=== PATIENT | female | born 1970 | race Caucasian/White ===

== ENCOUNTER 2017-09-20 01:21 | Emergency (ER) | payer OTHER ==
[~2017-09-20] VITALS: Ht 160 cm; Wt 58.5 kg
[~2017-09-20 01:21] MED LIST: AUGMENTIN 875-1 EACH PO; CEPHALEXIN500 MG PO; CILOXAN5 ML OD; METFORMIN HCL1000 MG PO; ZESTRIL10 MG PO
== END 2017-09-20 03:22 | disposition home or self-care (01) ==
LOC: ED 01:21
DX: M54.5 Low back pain (principal); I10 Essential (primary) hypertension; E11.9 Type 2 diabetes mellitus without complications; Z87.891 Personal history of nicotine dependence; Z98.51 Tubal ligation status; Z79.899 Other long term (current) drug therapy
CPT/HCPCS: 80053; 81001; 83690; 84703; 85025; 99283

== ENCOUNTER 2018-02-14 20:07 | Emergency (ER) | payer SELFPAY ==
[~2018-02-14] VITALS: Ht 160 cm; Wt 60.8 kg
[2018-02-14] MEDS ORDERED: TESSALON PERLE100 MG PO (20:40)
== END 2018-02-14 20:51 | disposition home or self-care (01) ==
LOC: ED 20:07
DX: J20.9 Acute bronchitis, unspecified (principal); I10 Essential (primary) hypertension; E11.9 Type 2 diabetes mellitus without complications; Z87.891 Personal history of nicotine dependence
CPT/HCPCS: 99283

== ENCOUNTER 2018-04-03 00:36 | Emergency (ER) | payer OTHER ==
[~2018-04-03] VITALS: Ht 160 cm; Wt 60.8 kg
[~2018-04-03 00:36] MED LIST changes: +TESSALON PERLE100 MG PO
== END 2018-04-03 01:57 | disposition home or self-care (01) ==
LOC: ED 00:36
DX: S93.401A Sprain of unspecified ligament of right ankle, initial encounter (principal); I10 Essential (primary) hypertension; E11.9 Type 2 diabetes mellitus without complications; Z87.891 Personal history of nicotine dependence; W22.8XXA Striking against or struck by other objects, initial encounter; Y92.89 Other specified places as the place of occurrence of the external cause; Y99.0 Civilian activity done for income or pay
CPT/HCPCS: 73610; 73630; 99283

== ENCOUNTER 2018-08-31 12:18 | Emergency (ER) | payer OTHER ==
[~2018-08-31] VITALS: Ht 160 cm; Wt 60.8 kg
--- OUTSIDE RECORDS SUMMARY | 2018-08-31 12:22 | XMS ---
PreManage Notification: KENY MEEK Security Recruitment And Outreach Assistant Events No recent Security Events currently on file CRITERIA MET - Group Notification - [facility] - 2 Visits in 30 Days CARE PROVIDERS VAMSI ACEVEDO Primary Care 10/13/2015-Current PHONE: Unknown VAMSI ACEVEDO Primary Care 10/13/2015-Current PHONE: [phone] Surya has no Care Guidelines for this patient. Care History Social 02/18/2018 [facility] PATIENT GIVEN CONTACT INFORMATION TO INTERN ARCHITECT TO APPLY FOR STATE COVERAGE. E.D. VISIT COUNT (12 MO[address] 1 [facility] 5 [facility]. TOTAL 6 NOTE: Visits indicate total known visits. ED/UCC VISIT TRACKING (12 MO.) 08/31/2018 12:19 NOLBERTO Aggarwal TYPE: Emergency COMPLAINT: - FLANK PAIN 08/19/2018 10:02 [facility] Nelly SHABAZZ TYPE: Emergency DIAGNOSES: - Encounter for general adult medical examination without abnormal findings - Medical Problem (Minor) 04/03/2018 00:36 NOLBERTO Alegria [place] TYPE: Emergency COMPLAINT: - R ANKLE INJURY DIAGNOSES: - Sprain of unspecified ligament of right ankle, initial encounter - Other specified places as the place of occurrence of the external cause - Striking against or struck by other objects, initial encounter - Type 2 diabetes mellitus without complications - Unspecified injury of right ankle, initial encounter - Civilian activity done for income or pay - Essential (primary) hypertension - Personal history of nicotine dependence 02/20/2018 14:19 NOLBERTO Alegria [place] TYPE: Emergency COMPLAINT: - ABD PAIN DIAGNOSES: - Essential (primary) hypertension - Type 2 diabetes mellitus without complications - Other stimulant dependence, uncomplicated - Lower abdominal pain, unspecified 02/14/2018 20:07 NOLBERTO Alegria [place] TYPE: Emergency COMPLAINT: - COUGH, LUMP ON L SIDE OF NECK DIAGNOSES: - Cough - Type 2 diabetes mellitus without complications - Acute bronchitis, unspecified - Personal history of nicotine dependence - Essential (primary) hypertension 09/20/2017 01:22 NOLBERTO Alegria [place] TYPE: Emergency COMPLAINT: - LOWER BACK PAIN/NO INJURY DIAGNOSES: - Other alf (current) drug therapy - Personal history of nicotine dependence - Type 2 diabetes mellitus without complications - Low back pain - Tubal ligation status - Essential (primary) hypertension INPATIENT VISIT TRACKING (12 MO.) No inpatient visits to display in this time frame [email or web address]
[2018-08-31] MEDS ORDERED: METFORMIN HCL1000 M1 PO (13:15)
[2018-08-31] MEDS ORDERED: LISINOPRIL-HCT1 EAC2 PO (13:15)
== END 2018-08-31 17:44 | disposition home or self-care (01) ==
LOC: ED 12:18
DX: R10.31 Right lower quadrant pain (principal); I10 Essential (primary) hypertension; E11.9 Type 2 diabetes mellitus without complications; Z87.891 Personal history of nicotine dependence; Z79.899 Other long term (current) drug therapy; Z79.84 Long term (current) use of oral hypoglycemic drugs
CPT/HCPCS: 74177; 80053; 81001; 83605; 83690; 84703; 85025; 87040; 96360; 96361; 99284-25; J7030; Q9967

== ENCOUNTER 2018-09-02 06:33 | Emergency (ER) | payer OTHER ==
[~2018-09-02] VITALS: Ht 160 cm; Wt 70.8 kg
[~2018-09-02 06:33] MED LIST changes: +LISINOPRIL-HCT1 EAC2 PO; +METFORMIN HCL1000 M1 PO
--- OUTSIDE RECORDS SUMMARY | 2018-09-02 06:38 | XMS ---
PreManage Notification: KENY MEEK Security Senior Environmental Consultant Events No recent Security Events currently on file CRITERIA MET - Group Notification - [facility] - 2 Visits in 30 Days CARE PROVIDERS DL ARNETT Physician Community Organization Aide 09/01/2018-Current PHONE: [phone] VAMSI ACEVEDO Primary Care 10/13/2015-Current PHONE: Unknown VAMSI ACEVEDO Primary Care 10/13/2015-Current PHONE: [phone] Surya has no Care Guidelines for this patient. Care History Medical/Surgical 09/01/2018 [facility] - PATIENT HAS NOT BEEN SEEN BY PCP ARTHUR ARNETT. - PATIENT DOES NOT HAVE A PCP IN THE AREA. - PLEASE REFER PATIENT TO [facility] IF PATIENT IS SEEN FOR NON EMERGENT MEDICAL NEEDS. Social 02/18/2018 [facility] PATIENT GIVEN CONTACT INFORMATION TO DENTAL LABORATORY MANAGER TO APPLY FOR STATE COVERAGE. Martin VISIT COUNT (12 MO.) 1 [facility] TOTAL 7 NOTE: Visits indicate total known visits. ED/UCC VISIT TRACKING (12 MO.) 09/02/2018 06[facility] [place] [facility] COMPLAINT: - R PINKY TOE PAIN/INJURY 08/31/2018 12:19 NOLBERTO Alegria [place] TYPE: Emergency COMPLAINT: - FLANK PAIN 08/19/2018 10:02 [facility] Hayley SHABAZZ TYPE: Emergency DIAGNOSES: - Encounter for [...] history of nicotine dependence 02/20/2018 14:19 NOLBERTO Carballo Tisha [place] TYPE: Emergency COMPLAINT: - ABD PAIN DIAGNOSES: - Essential (primary) hypertension - Type 2 diabetes mellitus without complications - Other stimulant dependence, uncomplicated - Lower abdominal pain, unspecified 02/14/2018 20:[address] [facility] [place] TYPE: Emergency COMPLAINT: - COUGH, LUMP ON L SIDE OF NECK DIAGNOSES: - Cough - Type 2 diabetes mellitus without complications - Acute bronchitis, unspecified - Personal history of nicotine dependence - Essential (primary) hypertension 09/20/2017 01:[address] 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
== END 2018-09-02 06:45 | disposition home or self-care (01) ==
LOC: ED 06:33
DX: S99.921A Unspecified injury of right foot, initial encounter (principal); W22.8XXA Striking against or struck by other objects, initial encounter; I10 Essential (primary) hypertension; E11.9 Type 2 diabetes mellitus without complications; Z87.891 Personal history of nicotine dependence; Z79.84 Long term (current) use of oral hypoglycemic drugs; Z79.899 Other long term (current) drug therapy
CPT/HCPCS: 99283

== ENCOUNTER 2018-09-07 05:36 | Emergency (ER) | payer OTHER ==
[~2018-09-07] VITALS: Ht 160 cm; Wt 69.8 kg
--- OUTSIDE RECORDS SUMMARY | 2018-09-07 05:38 | XMS ---
PreManage Notification: KENY MEEK Security Architectural Design Lecturer Events No recent Security Events currently on file CRITERIA MET - Group Notification - [facility] - 2 Visits in 30 Days CARE PROVIDERS DL ARNETT Physician Box Puller 09/01/2018-Current PHONE: [phone] VAMSI ACEVEDO Primary Care 10/13/2015-Current PHONE: Unknown VAMSI ACEVEDO Primary Care 10/13/2015-Current PHONE: [phone] Surya has no Care Guidelines for this patient. Care History Social 02/18/2018 [facility] PATIENT GIVEN CONTACT INFORMATION TO SUPERVISOR DOPING TO APPLY FOR STATE COVERAGE. Medical/Surgical 09/01/2018 [facility] - INVALID CONTACT INFO- CONTACT NUMBER IS NO LONGER IN SERVICE - IF PATIENT IS SEEN IN THE ED DURING BUSINESS HOURS PLEASE CONTACT CHRISTIANA EXT [phone] TO APPLY FOR MEDICAID BENEFITS. PATIENT NEEDS A PCP AND NEEDS TO APPLY FOR INSURANCE. - PATIENT HAS NOT BEEN SEEN BY PCP ARTHUR ARNETT. - PATIENT DOES NOT HAVE A PCP IN THE AREA. - PLEASE REFER PATIENT TO [facility] W[facility] IF PATIENT IS SEEN FOR NON EMERGENT MEDICAL NEEDS. E.D. VISIT COUNT (12 MO.) 1 [facility] 7 [facility]. TOTAL 8 NOTE: Visits indicate total known visits. ED/UCC VISIT TRACKING (12 MO.) 09/07/2018 05:[address] [place] TYPE: Emergency COMPLAINT: - COUGH,CONGESTION 09/02/2018 06:[address] [place] TYPE: Emergency COMPLAINT: - R PINKY TOE PAIN/INJURY DIAGNOSES: - Essential (primary) hypertension - Type 2 diabetes mellitus without complications - Other meterman (current) drug therapy - Striking against or struck by other objects, initial encounter - Unspecified injury of right foot, initial encounter - meterman (current) use of oral hypoglycemic drugs - Personal history of nicotine dependence 08/31/2018 12:19 NOLBERTO [facility] H[facility]ina [place] TYPE: Emergency COMPLAINT: - FLANK PAIN DIAGNOSES: - Essential (primary) hypertension - Other halfway (current) drug therapy - group home (current) use of oral hypoglycemic drugs - Right lower quadrant pain - Type 2 diabetes mellitus without complications - Personal history of nicotine dependence 08/19/2018 [facility] DIAGNOSES: - Encounter for [...] dependence - Essential (primary) hypertension 09/20/2017 01:[address] [facility] [place] TYPE: Emergency COMPLAINT: - LOWER BACK PAIN/NO INJURY DIAGNOSES: - Other meterman (current) drug therapy - Personal history of nicotine dependence - Type 2 diabetes mellitus without complications - Low back pain - Tubal ligation status - Essential (primary) hypertension INPATIENT VISIT TRACKING (12 MO.) No inpatient visits to display in this time frame [email or web address]
[2018-09-07] MEDS ORDERED: PREDNISONE20 MG PO (06:10)
== END 2018-09-07 06:30 | disposition home or self-care (01) ==
LOC: ED 05:36
DX: J20.9 Acute bronchitis, unspecified (principal); I10 Essential (primary) hypertension; E11.9 Type 2 diabetes mellitus without complications; Z87.891 Personal history of nicotine dependence; Z79.84 Long term (current) use of oral hypoglycemic drugs; Z79.899 Other long term (current) drug therapy
CPT/HCPCS: 99283; J7512

== ENCOUNTER 2018-09-28 15:25 | Emergency (ER) | payer OTHER ==
[~2018-09-28] VITALS: Ht 160 cm; Wt 69.9 kg
[~2018-09-28 15:25] MED LIST changes: +PREDNISONE20 MG PO
--- OUTSIDE RECORDS SUMMARY | 2018-09-28 15:28 | XMS ---
PreManage Notification: KENY MEEK Security Tube Sizer Operator Events No recent Security Events currently on file CRITERIA MET - Group Notification - 6 ED Visits in 6 Months - [facility] - Has Care Guidelines - [facility] - 2 Visits in 30 Days CARE PROVIDERS DL ARNETT Physician Military Lawyer 09/01/2018-Current PHONE: [phone] VAMSI ACEVEDO Primary Care 10/13/2015-Current PHONE: Unknown VAMSI ACEVEDO Primary Care 10/13/2015-Current PHONE: [phone] Surya has no Care Guidelines for this patient. Care History Medical/Surgical 09/08/2018 [facility] - W IS UNABLE TO CONTACT PATIENT- CONTACT NUMBER INVALID - IF PATIENT IS SEEN IN THE ED AND IS WILLING TO ACCEPT HELP FOR TREATMENT PLEASE CONTACT [place] A\T\amp; D [facility] [phone] AND REQUEST TO SPEAK WITH VAMSI. - PLEASE CONTACT [facility]- [phone] WHEN PATIENT IS SEEN IN THE ED. - PATIENT NEEDS TO APPLY FOR MEDICAID- DOES NOT CURRENTLY HAVE INSURANCE 09/01/2018 [facility] - INVALID CONTACT INFO- CONTACT NUMBER IS NO LONGER IN SERVICE - IF PATIENT IS SEEN IN THE ED DURING BUSINESS HOURS PLEASE CONTACT CHRISTIANA LIRA [phone] TO APPLY FOR MEDICAID BENEFITS. PATIENT NEEDS A PCP AND NEEDS TO APPLY FOR INSURANCE. - PATIENT HAS NOT BEEN SEEN BY PCP ARTHUR ARNETT. - PATIENT DOES NOT HAVE A PCP IN THE AREA. - PLEASE REFER PATIENT TO [facility] W[facility] IN CL[facility]IC IF PATIENT IS SEEN FOR NON EMERGENT MEDICAL NEEDS. Social 02/18/2018 [facility] PATIENT GIVEN CONTACT INFORMATION TO TITLE LAWYER TO APPLY FOR STATE COVERAGE. E.D. VISIT COUNT (12 MO.) [address] Hayley Villegas 7 [facility]. TOTAL 8 NOTE: Visits indicate total known visits. 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 elementary instructional coach (current) drug therapy - Acute bronchitis, unspecified - Personal history of nicotine dependence - Essential (primary) hypertension - prison (current) use of oral hypoglycemic drugs - Cough 09/02/2018 06:34 NOLBERTO Alegria [place] TYPE: Emergency COMPLAINT: - R PINKY TOE PAIN/INJURY DIAGNOSES: - Essential (primary) hypertension - Type 2 diabetes mellitus without complications - Other detention (current) drug therapy - Striking against or struck by other objects, initial encounter - Unspecified injury of right foot, initial encounter - prison (current) use of oral hypoglycemic drugs - Personal history of nicotine dependence 08/31/2018 12:19 NOLBERTO Aggarwal TYPE: Emergency COMPLAINT: - FLANK PAIN DIAGNOSES: - Essential (primary) hypertension - Other elementary instructional coach (current) drug therapy - prison (current) use of oral hypoglycemic drugs - Right lower quadrant pain - Type 2 diabetes mellitus without complications - Personal history of nicotine dependence 08/19/2018 [facility]02 [facility] DIAGNOSES: - Encounter for general adult medical examination without abnormal findings - Medical Problem (Minor) 04/03/2018 00:36 NOLBERTO Aggarwal TYPE: Emergency COMPLAINT: - R ANKLE INJURY [...] of nicotine dependence - Essential (primary) hypertension INPATIENT VISIT TRACKING (12 MO.) No inpatient visits to display in this time frame [email or web address]
== END 2018-09-28 15:49 | disposition home or self-care (01) ==
LOC: ED 15:25
DX: M79.672 Pain in left foot (principal)

== ENCOUNTER 2018-10-04 11:51 | Emergency (ER) | payer OTHER ==
[~2018-10-04] VITALS: Ht 160 cm; Wt 65.8 kg
--- OUTSIDE RECORDS SUMMARY | 2018-10-04 11:54 | XMS ---
PreManage Notification: KENY MEEK Security Grocery Shopper Events No recent Security Events currently on file CRITERIA MET - Group Notification - 6 ED Visits in 6 Months - [facility] - Has Care Guidelines - [facility] - 2 Visits in 30 Days CARE PROVIDERS DL ARNETT Physician Dental Technician 09/01/2018-Current PHONE: [phone] VAMSI ACEVEDO Primary Care 10/13/2015-Current PHONE: Unknown VAMSI ACEVEDO Primary Care 10/13/2015-Current PHONE: [phone] Surya has no Care Guidelines for this patient. Care History Social 02/18/2018 [facility] PATIENT GIVEN CONTACT INFORMATION TO TRUCK PACKER TO APPLY FOR STATE COVERAGE. Medical/Surgical 09/08/2018 [facility] - W IS UNABLE TO CONTACT PATIENT- CONTACT NUMBER INVALID - IF PATIENT IS SEEN IN THE ED AND IS WILLING TO ACCEPT HELP FOR TREATMENT PLEASE CONTACT [place] A\T\amp; D SERVICES [phone] AND REQUEST TO SPEAK WITH VAMSI. - PLEASE CONTACT [facility] [phone] WHEN PATIENT IS SEEN IN THE ED. 09/01/2018 [facility] - INVALID CONTACT INFO- CONTACT NUMBER IS NO LONGER IN SERVICE - IF PATIENT IS SEEN IN THE ED DURING BUSINESS HOURS PLEASE CONTACT CHRISTIANA EXT [phone] TO APPLY FOR MEDICAID BENEFITS. PATIENT NEEDS A PCP AND NEEDS TO APPLY FOR INSURANCE. - PATIENT HAS NOT BEEN SEEN BY PCP ARTHUR ARNETT. - PATIENT DOES NOT HAVE A PCP IN THE AREA. - PLEASE REFER PATIENT TO [facility] IF PATIENT IS SEEN FOR NON EMERGENT MEDICAL NEEDS. E.D. VISIT COUNT (12 MO.) [address] Hayley Villegas 8 [facility]. TOTAL 9 NOTE: Visits indicate total known visits. ED/UCC VISIT TRACKING (12 MO.) 10/04/2018 11:52 NOLBERTO Alegria [place] TYPE: Emergency COMPLAINT: - L HEEL PAIN 09/28/2018 15:25 NOLBERTO Alegria [place] TYPE: Emergency COMPLAINT: - L FOOT PAIN DIAGNOSES: - Pain in left foot 09/07/2018 05:36 NOLBERTO Alegria [place] TYPE: Emergency COMPLAINT: - COUGH,CONGESTION DIAGNOSES: - Type 2 diabetes mellitus without complications - Other geophysical observer (current) drug therapy - Acute bronchitis, unspecified - Personal history of nicotine dependence - Essential (primary) hypertension - aerial gunner superintendent (current) use of oral hypoglycemic drugs - Cough 09/02/2018 06:34 NOLBERTO Aggarwal TYPE: Emergency COMPLAINT: - R PINKY TOE PAIN/INJURY DIAGNOSES: - Essential (primary) hypertension - Type 2 diabetes mellitus without complications - Other assisted (current) drug therapy - Striking against or struck by other objects, initial encounter - Unspecified injury of right foot, initial encounter - aerial gunner superintendent (current) use of oral hypoglycemic drugs - Personal history of nicotine dependence 08/31/2018 12:19 NOLBERTO Aggarwal TYPE: Emergency COMPLAINT: - FLANK PAIN DIAGNOSES: - Essential (primary) hypertension - Other geophysical observer (current) drug therapy - detention (current) use of oral hypoglycemic drugs - Right lower quadrant pain - Type 2 diabetes mellitus without complications - Personal history of nicotine dependence 08/19/2018 10:02 [facility] Nelly SHABAZZ TYPE: Emergency DIAGNOSES: - [...] visits to display in this time frame [email or web address]
== END 2018-10-04 12:13 | disposition home or self-care (01) ==
LOC: ED 11:51
DX: M79.672 Pain in left foot (principal)

== ENCOUNTER 2019-08-27 00:08 | Emergency (ER) | payer OTHER ==
[~2019-08-27] VITALS: Ht 160 cm; Wt 61.1 kg
[~2019-08-27 00:08] MED LIST changes: +CRUTCH1 EACH; +NORCO 5-325 TA1 EACH PO
--- OUTSIDE RECORDS SUMMARY | 2019-08-27 00:12 | XMS ---
PreManage Notification: KENY WELCH Security Farm Field Manager Events 1 event(s) in the past 18 months Most recent security events: Elopement at [facility] 07/26/2019 13:49 - Other Details: PATIENT LWBS. IRIS CREATED CRITERIA MET - Group Notification - [facility] - Has Care Guidelines CARE PROVIDERS DL ARNETT Physician Environmental Quality Analyst 09/01/2018-Current PHONE: [phone] Name Unknown Clinic/Center: Counts Include [facility] 02/24/2019-[facility] PHONE: [phone] VAMSI ACEVEDO Primary Care 10/13/2015-Current PHONE: Unknown Surya has no Care Guidelines for this patient. Care History Social 02/18/2018 [facility] PATIENT GIVEN CONTACT INFORMATION TO INSULATION POWER UNIT TENDER TO APPLY FOR STATE COVERAGE. Medical/Surgical 02/03/2019 [facility] - PATIENT HAS DECLINED EOIPA CASE MANAGEMENT ASSISTANCE. - PATIENT STATED SHE IS CURRENTLY SEEING A PRIMARY CARE PHYSICIAN AT [facility] [place]. 02/02/2019 [facility] - [facility]- [phone]- DUE TO ED UTILIZATION. 09/08/2018 [facility] - W IS UNABLE TO CONTACT PATIENT- CONTACT NUMBER INVALID - IF PATIENT IS SEEN IN THE ED AND IS WILLING TO ACCEPT HELP FOR TREATMENT PLEASE CONTACT [employer] A\T\amp; D [facility] [employer] [phone] AND REQUEST TO SPEAK WITH VAMSI. - PLEASE CONTACT [facility] NAHEED- [phone] WHEN PATIENT IS SEEN IN THE ED. E.D. VISIT COUNT (12 MO.) 9 [facility]. TOTAL 9 NOTE: Visits indicate total known visits. ED/UCC VISIT TRACKING (12 MO.) 08/27/2019 00:08 NOLBERTO Alegria [place] TYPE: Emergency COMPLAINT: - BUG/SPIDER BITE 07/26/2019 13:49 NOLBERTO Alegria [place] TYPE: Emergency COMPLAINT: - ABD PAIN, DIFFICULTY BREATHING DIAGNOSES: - Proc/trtmt not crd out d/t pt lv bef seen by [facility] 02/23/2019 19:34 NOLBERTO Alegria [place] TYPE: Emergency COMPLAINT: - LT FOOT INJURY DIAGNOSES: - Pain in left ankle and joints of left foot - 1 Type 2 diabetes mellitus without complications - Essential (primary) hypertension - Unsp fracture of lower end of left tibia, init for clos fx - Overexertion from prolonged static or awkward postures, init 02/02/2019 07:26 NOLBERTO Alegria [place] TYPE: Emergency COMPLAINT: - RIB PAIN,COUGH DIAGNOSES: - Essential (primary) hypertension - Cough - 1 Type 2 diabetes mellitus without complications 10/04/2018 11:52 NOLBERTO Alegria [place] TYPE: Emergency COMPLAINT: - L HEEL PAIN DIAGNOSES: - Pain in left foot 09/28/2018 15:25 NOLBERTO Alegria [place] TYPE: Emergency COMPLAINT: - L FOOT PAIN DIAGNOSES: - Pain in left foot 09/07/2018 05:36 NOLBERTO Alegria [place] TYPE: Emergency COMPLAINT: - COUGH,CONGESTION DIAGNOSES: - 1 Type 2 diabetes mellitus without complications - Other long-term (current) drug therapy - Acute bronchitis, unspecified - Personal history of nicotine dependence - Essential (primary) hypertension - continuous churn buttermaker (current) use of oral hypoglycemic drugs - Cough 09/02/2018 06:34 NOLBERTO Alegria [place] TYPE: Emergency COMPLAINT: - R PINKY TOE PAIN/INJURY DIAGNOSES: - Essential (primary) hypertension - 1 Type 2 diabetes mellitus without complications - Other continuous churn buttermaker (current) drug therapy - Striking against or struck by other objects, init encntr - Unspecified injury of right foot, initial encounter - [facility] (current) use of oral hypoglycemic drugs - Personal history of nicotine dependence 08/31/2018 12:19 NOLBERTO Alegria [place] TYPE: Emergency COMPLAINT: - FLANK PAIN DIAGNOSES: - Essential (primary) hypertension - Other continuous churn buttermaker (current) drug therapy - continuous churn buttermaker (current) use of oral hypoglycemic drugs - Right lower quadrant pain - 1 Type 2 diabetes mellitus without complications - Personal history of nicotine dependence INPATIENT VISIT TRACKING (12 MO.) No inpatient visits to display in this time frame [email or web address]
[2019-08-27] MEDS ORDERED: CEPHALEXIN500 MG PO (01:13)
== END 2019-08-27 01:25 | disposition home or self-care (01) ==
LOC: ED 00:08
DX: S00.86XD Insect bite (nonvenomous) of other part of head, subsequent encounter (principal); S20.461D Insect bite (nonvenomous) of right back wall of thorax, subsequent encounter; L08.9 Local infection of the skin and subcutaneous tissue, unspecified; E11.9 Type 2 diabetes mellitus without complications; I10 Essential (primary) hypertension; W57.XXXD Bitten or stung by nonvenomous insect and other nonvenomous arthropods, subsequent encounter
CPT/HCPCS: 99283

== ENCOUNTER → 2020-05-25 | Emergency (ER) | payer OTHER ==
[~2020-05-25] VITALS: Ht 160 cm; Wt 61.2 kg
--- OUTSIDE RECORDS SUMMARY | 2020-05-25 05:56 | XMS ---
PreManage Notification: KENY WELCH Security Automotive Brake Adjuster Events 1 event(s) in the past 18 months Most recent security events: Elopement at [facility] 07/26/2019 13:49 - Other Details: PATIENT LWBS. CRITERIA MET - Group Notification - [facility] - Has Care Guidelines CARE PROVIDERS DL ARNETT Physician Health Program Specialist 09/01/2018-Current PHONE: [phone] Name Unknown Clinic/Center: [facility] 02/24/2019-[facility] PHONE: [phone] Surya has no Care Guidelines for this patient. Care History Medical/Surgical 02/03/2019 [facility] - PATIENT HAS DECLINED EOIPA CASE MANAGEMENT ASSISTANCE. - PATIENT STATED SHE IS CURRENTLY SEEING A PRIMARY CARE PHYSICIAN AT [facility] IN [place]. 02/02/2019 [facility] - PATIENT REFERRED TO [facility]A CASE MANAGEMENT- [phone]- DUE TO ED UTILIZATION. 09/08/2018 [facility] - CHW IS UNABLE TO CONTACT PATIENT- CONTACT NUMBER INVALID - IF PATIENT IS SEEN IN THE ED AND IS WILLING TO ACCEPT HELP FOR TREATMENT PLEASE CONTACT [place]ILTON A\T\amp; Sunny [facility] [phone] AND REQUEST TO SPEAK WITH VAMSI. - PLEASE CONTACT [facility]- NAHEED- [phone] WHEN PATIENT IS SEEN IN THE ED. Social 02/18/2018 [facility] PATIENT GIVEN CONTACT INFORMATION TO WAX PATTERN ASSEMBLER TO APPLY FOR STATE COVERAGE. E.D. VISIT COUNT (12 MO.) [address] [facility] [address] TOTAL 3 NOTE: Visits indicate total known visits. ED/UCC VISIT TRACKING (12 MO.) 05/25/2020 05:[address] [facility] [facility] [place] TYPE: Emergency COMPLAINT: - RT LEG PROBLEM 08/27/2019 00:08 NOLBERTO Kuantoinette CooperCarina [place] TYPE: Emergency COMPLAINT: - BUG/SPIDER BITE DIAGNOSES: - Essential (primary) hypertension - Type 2 diabetes mellitus without complications - Local infection of the skin and subcutaneous tissue, unspecif - Insect bite (nonvenomous) of other part of head, subsequent e - Bitten or stung by nonvenomous insect and other nonvenomous a - Insect bite (nonvenomous) of right back wall of thorax, subse 07/26/2019 13:49 [place]: Emergency COMPLAINT: - ABD PAIN, DIFFICULTY BREATHING DIAGNOSES: - Procedure and treatment not carried out due to patient leavin INPATIENT VISIT TRACKING (12 MO.) No inpatient visits to display in this time frame [email or web address]
== END ==
LOC: ED 05:53
DX: M79.651 Pain in right thigh (principal); I10 Essential (primary) hypertension; E11.9 Type 2 diabetes mellitus without complications; Z87.891 Personal history of nicotine dependence
CPT/HCPCS: 93971; 99283-25; A9270

== ENCOUNTER 2021-02-19 08:54 | Emergency (ER) | payer OTHER ==
[~2021-02-19] VITALS: Ht 160 cm; Wt 61.2 kg
--- OUTSIDE RECORDS SUMMARY | 2021-02-19 08:58 | XMS ---
PreManage Notification: KENY WELCH Security Dock Boss Events No recent Security Events currently on file CRITERIA MET - Group Notification CARE PROVIDERS DL ARNETT Physician Electrician Apprentice Powerhouse 09/01/2018-Current PHONE: [phone] [facility]: Federally Qualified 02/24/2019-[facility] ([facility]) REPLACED BY [facility] PHONE: [phone] LESIA DAWN Physician Electrician Apprentice Powerhouse: Medical Current PHONE: Unknown Surya has no Care Guidelines for this patient. Care History Medical/Surgical 02/03/2019 [facility] - PATIENT HAS DECLINED [facility] CASE MANAGEMENT ASSISTANCE. - PATIENT STATED SHE IS CURRENTLY SEEING A PRIMARY CARE PHYSICIAN AT [facility] IN [place]. 02/02/2019 [facility] - PATIENT REFERRED TO [facility]- [phone]- DUE TO ED UTILIZATION. 09/08/2018 [facility] - [facility] IS UNABLE TO CONTACT PATIENT- CONTACT NUMBER INVALID - IF PATIENT IS SEEN IN THE ED AND IS WILLING TO ACCEPT HELP FOR TREATMENT PLEASE CONTACT OGALLALA A\T\amp; D [facility] [phone] AND REQUEST TO SPEAK WITH VAMSI. - PLEASE CONTACT [facility] NAHEED- [phone] WHEN PATIENT IS SEEN IN THE ED. Social 02/18/2018 [facility] PATIENT GIVEN CONTACT INFORMATION TO SHIPPING/RECEIVING MANAGER TO APPLY FOR STATE COVERAGE. E.D. VISIT COUNT (12 MO.) 1 [facility] 2 [facility]. TOTAL 3 NOTE: Visits indicate total known visits. ED/UCC VISIT TRACKING (12 MO.) 02/19/2021 08:55 [facility] TYPE: Emergency COMPLAINT: - BLOODY STOOL, HEADACHES, NO APPETITE, FATIGUE 05/30/2020 18[facility] COMPLAINT: - CONFUSION, WEAKNESS 05/25/2020 05:54 N[facility]BERT[facility] Aggarwal TYPE: Emergency COMPLAINT: - RT LEG PROBLEM DIAGNOSES: - Essential (primary) hypertension - Pain in right thigh - Personal history of nicotine dependence - Type 2 diabetes mellitus without complications INPATIENT VISIT TRACKING (12 MO.) 05/31/2020 09:08 [facility] [place]: [place]patient COMPLAINT: - ACUTE: WEAKNESS DIAGNOSES: 0. Altered mental status, unspecified 1. Toxic encephalopathy 2. Adverse effect of amphetamines, initial encounter 3. Other stimulant abuse with withdrawal 3. OTHER STIMULANT ABUSE WITH WITHDRAWAL 4. Essential (primary) hypertension 5. Type 2 diabetes mellitus without complications 6. Urinary tract infection, site not specified 6. Major depressive disorder, single episode, unspecified 7. Homelessness 7. Major depressive disorder, single episode, unspecified 8. Homelessness 8. Post-traumatic stress disorder, unspecified 9. Post-traumatic stress disorder, unspecified 9. Nicotine dependence, cigarettes, uncomplicated 10. Unspecified abdominal pain 10. Nicotine dependence, cigarettes, uncomplicated 11. Hematuria, unspecified 11. Unspecified abdominal pain - Pain in thoracic spine - Erythema intertrigo - Asymptomatic menopausal state - Hematuria, unspecified - Nausea with vomiting, unspecified [email or web address]
[2021-02-19] MEDS ORDERED: HYDROCORTISONE25 MG PR (14:28)
== END 2021-02-19 14:30 | disposition home or self-care (01) ==
LOC: ED 08:54
DX: K62.89 Other specified diseases of anus and rectum (principal); R79.89 Other specified abnormal findings of blood chemistry; I10 Essential (primary) hypertension; E11.9 Type 2 diabetes mellitus without complications; Z87.891 Personal history of nicotine dependence
CPT/HCPCS: 80053; 85025; 99283

== ENCOUNTER 2021-05-23 16:38 | Emergency (ER) | payer OTHER ==
[~2021-05-23] VITALS: Ht 160 cm; Wt 57.7 kg
[~2021-05-23 16:38] MED LIST changes: +HYDROCORTISONE25 MG PR
--- OUTSIDE RECORDS SUMMARY | 2021-05-23 16:42 | XMS ---
PreManage Notification: KENY WELCH Security Lifts And Cranes Inspector Events No recent Security Events currently on file CRITERIA MET - Group Notification CARE PROVIDERS DL ARNETT Physician After School Counselor 09/01/2018-Current PHONE: [phone] [facility]: Federally Qualified 02/24/2019-[facility] ([facility]) [facility] PHONE: [phone] LESIA DAWN Physician After School Counselor: Medical Current PHONE: Unknown Surya has no Care Guidelines for this patient. Care History Medical/Surgical 09/08/2018 [facility] - [facility] IS UNABLE TO CONTACT PATIENT- CONTACT NUMBER INVALID - IF PATIENT IS SEEN IN THE ED AND IS WILLING TO ACCEPT HELP FOR TREATMENT PLEASE CONTACT WILTON A\T\amp; Sunny [facility] [phone] AND REQUEST TO SPEAK WITH VAMSI. - PLEASE CONTACT NITHYA FARFAN- [phone] WHEN PATIENT IS SEEN IN THE ED. 09/01/2018 [facility] - INVALID CONTACT INFO- CONTACT NUMBER IS NO LONGER IN SERVICE - IF PATIENT IS SEEN IN THE ED DURING BUSINESS HOURS PLEASE CONTACT CHRISTIANA EXT [phone] TO APPLY FOR MEDICAID BENEFITS. PATIENT NEEDS A PCP AND NEEDS TO APPLY FOR INSURANCE. - PATIENT HAS NOT BEEN SEEN BY PCP ARTHUR ARNETT. - PATIENT DOES NOT HAVE A PCP IN THE AREA. - PLEASE REFER PATIENT TO [facility] IF PATIENT IS SEEN FOR NON EMERGENT MEDICAL NEEDS. Social 02/18/2018 [facility] PATIENT GIVEN CONTACT INFORMATION TO INSURANCE ACCOUNT REPRESENTATIVE TO APPLY FOR STATE COVERAGE. E.D. VISIT COUNT (12 MO.) 1 [facility]. 3 [facility]. TOTAL 4 NOTE: Visits indicate total known visits. ED/UCC VISIT TRACKING (12 MO.) 05/23/2021 16:40 [facility] Agg[facility] TYPE: Emergency COMPLAINT: - LOWER BACK PAIN/STOMACH PAIN 02/19/2021 08:55 N[facility] Aggarwal TYPE: Emergency COMPLAINT: - BLOODY STOOL, HEADACHES, NO APPETITE, FATIGUE DIAGNOSES: - Essential (primary) hypertension - Personal history of nicotine dependence - Other specified diseases of anus and rectum - Type 2 diabetes mellitus without complications - Other specified abnormal findings of blood chemistry - Nausea 05/30/2020 [facility] COMPLAINT: - CONFUSION, WEAKNESS 05/25/2020 05:[address] [facility] [place] TYPE: Emergency COMPLAINT: - RT LEG PROBLEM DIAGNOSES: - Essential (primary) hypertension - Pain in right thigh - Personal history of nicotine dependence - Type 2 diabetes mellitus without complications INPATIENT VISIT TRACKING (12 MO.) 05/31/2020 09:08 [facility] TYPE: Inpatient COMPLAINT: - ACUTE: WEAKNESS DIAGNOSES: [...] Hematuria, unspecified - Nausea with vomiting, unspecified [email or web address]
[2021-05-23] MEDS ORDERED: CEPHALEXIN500 M1 PO (18:18)
[2021-05-23] MEDS ORDERED: NAPROSYN500 MG PO (18:18)
== END 2021-05-23 18:30 | disposition home or self-care (01) ==
LOC: ED 16:38
DX: N39.0 Urinary tract infection, site not specified (principal); K42.9 Umbilical hernia without obstruction or gangrene; I10 Essential (primary) hypertension; E11.9 Type 2 diabetes mellitus without complications; Z87.891 Personal history of nicotine dependence
CPT/HCPCS: 81001; 84703; 99284; A9270

== ENCOUNTER 2021-09-27 16:13 | Emergency (ER) | payer OTHER ==
[~2021-09-27] VITALS: Ht 160 cm; Wt 56.2 kg
[~2021-09-27 16:13] MED LIST changes: +CEPHALEXIN500 M1 PO; +NAPROSYN500 MG PO
--- OUTSIDE RECORDS SUMMARY | 2021-09-27 16:14 | XMS ---
PreManage Notification: KENY WELCH Security Mold Sheet Cleaner Events No recent Security Events currently on file CRITERIA MET - Group Notification CARE PROVIDERS DL ARNETT Physician Clinical Services Director 09/01/2018-Current PHONE: [phone] [facility]/Center: Federally Qualified 02/24/2019-[facility] ([facility]) [facility] PHONE: [phone] LESIA DAWN Physician Clinical Services Director: Medical Current PHONE: Unknown Surya has no Care Guidelines for this patient. Care History Medical/Surgical 09/08/2018 [facility] - [facility] IS UNABLE TO CONTACT PATIENT- CONTACT NUMBER INVALID - IF PATIENT IS SEEN IN THE ED AND IS WILLING TO ACCEPT HELP FOR TREATMENT PLEASE CONTACT WILTON A\T\amp; Sunny [facility] [phone] AND REQUEST TO SPEAK WITH VAMSI. - PLEASE CONTACT NITHYA FARFAN- [phone] WHEN PATIENT IS SEEN IN THE ED. 09/01/2018 [facility] - INVALID CONTACT INFO- CONTACT NUMBER IS NO LONGER IN SERVICE - IF PATIENT IS SEEN IN THE ED DURING BUSINESS HOURS PLEASE CONTACT CHRISTIANA EXT [phone] TO APPLY FOR MEDICAID BENEFITS. PATIENT NEEDS A PCP AND NEEDS TO APPLY FOR INSURANCE. - PATIENT HAS NOT BEEN SEEN BY PCP ARTHUR ARNETT. - PATIENT DOES NOT HAVE A PCP IN THE AREA. - PLEASE REFER PATIENT TO [facility] IF PATIENT IS SEEN FOR NON EMERGENT MEDICAL NEEDS. Social 02/18/2018 [facility] PATIENT GIVEN CONTACT INFORMATION TO ACCOUNTING BOOKKEEPER TO APPLY FOR STATE COVERAGE. E.D. VISIT COUNT (12 MO.) 3 [facility]. TOTAL 3 NOTE: Visits indicate total known visits. ED/UCC VISIT TRACKING (12 MO.) 09/27/2021 16:13 [facility] [place] TYPE: Emergency COMPLAINT: - FLANK PAIN 05/23/2021 16:40 [facility] [place] TYPE: Emergency COMPLAINT: - LOWER BACK PAIN/STOMACH PAIN DIAGNOSES: - Urinary tract infection, site not specified - Personal history of nicotine dependence - Epigastric pain - Type 2 diabetes mellitus without complications - Essential (primary) hypertension - Umbilical hernia without obstruction or gangrene 02/19/2021 08:55 [facility] [place] TYPE: Emergency COMPLAINT: - BLOODY STOOL, HEADACHES, NO APPETITE, FATIGUE DIAGNOSES: - Essential (primary) hypertension - Personal history of nicotine dependence - Other specified diseases of anus and rectum - Type 2 diabetes mellitus without complications - Other specified abnormal findings of blood chemistry - Nausea INPATIENT VISIT TRACKING (12 MO.) No inpatient visits to display in this time frame [id number]
[2021-09-27] MEDS ORDERED: ONDANSETRON ODT8 MG PO (19:54)
== END 2021-09-27 20:46 | disposition home or self-care (01) ==
LOC: ED 16:13
DX: R10.9 Unspecified abdominal pain (principal); I10 Essential (primary) hypertension; E11.9 Type 2 diabetes mellitus without complications; Z87.891 Personal history of nicotine dependence
CPT/HCPCS: 36415; 71045; 74177; 80053; 81001; 83690; 84703; 85025; 99285-25; J2405; J7030

== ENCOUNTER 2021-10-13 09:37 | Emergency (ER) | payer OTHER ==
[~2021-10-13] VITALS: Ht 160 cm; Wt 57.8 kg
[~2021-10-13 09:37] MED LIST changes: +ONDANSETRON ODT8 MG PO
--- OUTSIDE RECORDS SUMMARY | 2021-10-13 09:40 | XMS ---
PreManage Notification: KENY WELCH Security Wire Mill Rover Events No recent Security Events currently on file CRITERIA MET - Group Notification - [facility] - 2 Visits in 30 Days CARE PROVIDERS DL ARNETT Physician Parachute Harness Rigger 09/01/2018-Current PHONE: [phone] [facility]: Federally Qualified 02/24/2019-[facility] ([facility]) [facility] PHONE: [phone] Surya has no Care Guidelines for this patient. Care History Social 02/18/2018 [facility] PATIENT GIVEN CONTACT INFORMATION TO MUSIC AGENT TO APPLY FOR STATE COVERAGE. Medical/Surgical 09/08/2018 [facility] - [facility] IS UNABLE TO CONTACT PATIENT- CONTACT NUMBER INVALID - IF PATIENT IS SEEN IN THE ED AND IS WILLING TO ACCEPT HELP FOR TREATMENT PLEASE CONTACT [place] A\T\amp; D SERVICES [phone] AND REQUEST TO SPEAK WITH VAMSI. - PLEASE CONTACT Mihir- NAHEED- [phone] WHEN PATIENT IS SEEN IN THE ED. 09/01/2018 [facility] - INVALID CONTACT INFO- CONTACT NUMBER IS NO LONGER IN SERVICE - IF PATIENT IS SEEN IN THE ED DURING BUSINESS HOURS PLEASE CONTACT CHRISTIANA EXT [phone] TO APPLY FOR MEDICAID BENEFITS. PATIENT NEEDS A PCP AND NEEDS TO APPLY FOR INSURANCE. - PATIENT HAS NOT BEEN SEEN BY PCP ARTHUR ARNETT. - PATIENT DOES NOT HAVE A PCP IN THE AREA. - PLEASE REFER PATIENT TO [facility] IF PATIENT IS SEEN FOR NON EMERGENT MEDICAL NEEDS. E.D. VISIT COUNT (12 MO.) 4 [facility]. TOTAL 4 NOTE: Visits indicate total known visits. ED/C VISIT TRACKING (12 MO.) 10/13/2021 09:38 [facility] [place] TYPE: Emergency COMPLAINT: - RT THIGH SWELLING 09/27/2021 16:[address] [facility] [place] TYPE: Emergency COMPLAINT: - FLANK PAIN DIAGNOSES: - Unspecified abdominal pain - Personal history of nicotine dependence - Type 2 diabetes mellitus without complications - Essential (primary) hypertension 05/23/2021 16:[address] [facility] [place] TYPE: Emergency COMPLAINT: - LOWER BACK PAIN/STOMACH PAIN DIAGNOSES: - Urinary tract infection, site not specified - Personal history of nicotine dependence - Epigastric pain - Type 2 diabetes mellitus without complications - Essential (primary) hypertension - Umbilical hernia without obstruction or gangrene 02/19/2021 08:[address] [facility] [place] TYPE: Emergency COMPLAINT: - BLOODY STOOL, HEADACHES, NO APPETITE, FATIGUE DIAGNOSES: - Essential (primary) hypertension - Personal history of nicotine dependence - Other specified diseases of anus and rectum - Type 2 diabetes mellitus without complications - Other specified abnormal findings of blood chemistry - Nausea INPATIENT VISIT TRACKING (12 MO.) No inpatient visits to display in this time frame [email or web address]
== END 2021-10-13 10:39 | disposition home or self-care (01) ==
LOC: ED 09:37
DX: M79.651 Pain in right thigh (principal); I10 Essential (primary) hypertension; E11.9 Type 2 diabetes mellitus without complications; Z87.891 Personal history of nicotine dependence
CPT/HCPCS: 73552; 99283-25

== ENCOUNTER 2021-11-25 06:57 | Emergency (ER) | payer OTHER ==
[~2021-11-25] VITALS: Ht 160 cm; Wt 57.2 kg
--- OUTSIDE RECORDS SUMMARY | 2021-11-25 07:01 | XMS ---
PreManage Notification: KENY WELCH Security Translational Specialist Events No recent Security Events currently on file CRITERIA MET - Group Notification CARE PROVIDERS DL ARNETT Physician Casino Dealer 09/01/2018-Current PHONE: [phone] [facility]: Federally Qualified 02/24/2019-[facility] ([facility]) [facility] PHONE: [phone] Surya has no Care Guidelines for this patient. Care History Social 02/18/2018 [facility] PATIENT GIVEN CONTACT INFORMATION TO TIE HACKER TO APPLY FOR STATE COVERAGE. Medical/Surgical 09/08/2018 [facility] - [facility] IS UNABLE TO CONTACT PATIENT- CONTACT NUMBER INVALID - IF PATIENT IS SEEN IN THE ED AND IS WILLING TO ACCEPT HELP FOR TREATMENT PLEASE CONTACT [place] A\T\amp; D SERVICES [phone] AND REQUEST TO SPEAK WITH VAMSI. - PLEASE CONTACT Marco Antonio FARFAN [phone] WHEN PATIENT IS SEEN IN THE ED. 09/01/2018 [facility] - INVALID CONTACT INFO- CONTACT NUMBER IS NO LONGER IN SERVICE - IF PATIENT IS SEEN IN THE ED DURING BUSINESS HOURS PLEASE CONTACT CHRISTIANA EXT [phone] TO APPLY FOR MEDICAID BENEFITS. PATIENT NEEDS A PCP AND NEEDS TO APPLY FOR INSURANCE. - PATIENT HAS NOT BEEN SEEN BY PCP ARTHUR ARNETT. - PATIENT DOES NOT HAVE A PCP IN THE AREA. - PLEASE REFER PATIENT TO [facility] IF PATIENT IS SEEN FOR NON EMERGENT MEDICAL NEEDS. E.D. VISIT COUNT (12 MO.) 5 [facility]. TOTAL 5 NOTE: Visits indicate total known visits. ED/UCC VISIT TRACKING (12 MO.) 11/25/2021:57 [facility] [place] TYPE: Emergency COMPLAINT: - BACK PAIN 10/13/2021 09:38 [facility] [place] TYPE: Emergency COMPLAINT: - RT THIGH SWELLING DIAGNOSES: - Type 2 diabetes mellitus without complications - Personal history of nicotine dependence - Essential (primary) hypertension - Pain in right thigh 09/27/2021 16:[address] [facility] TYPE: Emergency COMPLAINT: - FLANK PAIN DIAGNOSES: - Unspecified abdominal pain - Personal history of nicotine dependence - Type 2 diabetes mellitus without complications - Essential (primary) hypertension 05/23/2021 16:[address] [facility] [place] TYPE: Emergency COMPLAINT: - LOWER BACK PAIN/STOMACH PAIN DIAGNOSES: - Urinary tract infection, site not specified - Personal history of nicotine dependence - Epigastric pain - Type 2 diabetes mellitus without complications - Essential (primary) hypertension - Umbilical hernia without obstruction or gangrene 02/19/2021 08:[address] [facility] [place] TYPE: Emergency [...] visits to display in this time frame [email or web address]
[2021-11-25] MEDS ORDERED: CYCLOBENZAPRINE10 MG PO (08:25)
== END 2021-11-25 08:45 | disposition home or self-care (01) ==
LOC: ED 06:57
DX: M54.50 Low back pain, unspecified (principal); I10 Essential (primary) hypertension; E11.9 Type 2 diabetes mellitus without complications; Z87.891 Personal history of nicotine dependence
CPT/HCPCS: 72100; 81001; 99283-25

== ENCOUNTER 2021-12-14 16:33 | Emergency (ER) | payer OTHER ==
[~2021-12-14] VITALS: Ht 160 cm; Wt 55.6 kg
[~2021-12-14 16:33] MED LIST changes: +CYCLOBENZAPRINE10 MG PO
--- OUTSIDE RECORDS SUMMARY | 2021-12-14 16:36 | XMS ---
PreManage Notification: KENY WELCH Security Secondary School Registrar Events No recent Security Events currently on file CRITERIA MET - Group Notification - [facility] - 2 Visits in 30 Days CARE PROVIDERS DL ARNETT Physician Programs Manager 09/01/2018-Current PHONE: [phone] [facility]: Federally Qualified 02/24/2019-[facility] ([facility]) [facility] PHONE: [phone] Surya has no Care Guidelines for this patient. Care History Medical/Surgical 09/08/2018 [facility] - [facility] IS UNABLE TO CONTACT PATIENT- CONTACT NUMBER INVALID - IF PATIENT IS SEEN IN THE ED AND IS WILLING TO ACCEPT HELP FOR TREATMENT PLEASE CONTACT [place] A\T\amp; D SERVICES [phone] AND REQUEST TO SPEAK WITH VAMSI. - PLEASE CONTACT [facility]- NAHEED [phone] WHEN PATIENT IS SEEN IN THE ED. 09/01/2018 [facility] - INVALID CONTACT INFO- CONTACT NUMBER IS NO LONGER IN SERVICE - IF PATIENT IS SEEN IN THE ED DURING BUSINESS HOURS PLEASE CONTACT CHRISTIANA EXT [phone] TO APPLY FOR MEDICAID BENEFITS. PATIENT NEEDS A PCP AND NEEDS TO APPLY FOR INSURANCE. - PATIENT HAS NOT BEEN SEEN BY PCP ARTHUR ARNETT. - PATIENT DOES NOT HAVE A PCP IN THE AREA. - PLEASE REFER PATIENT TO [facility] IF PATIENT IS SEEN FOR NON EMERGENT MEDICAL NEEDS. Social 02/18/2018 [facility] PATIENT GIVEN CONTACT INFORMATION TO COMPUTER OPERATOR TO APPLY FOR STATE COVERAGE. E.D. VISIT COUNT (12 MO.) 6 [facility]. TOTAL 6 NOTE: Visits indicate total known visits. ED/C VISIT TRACKING (12 MO.) 12/14/2021 16:34 [facility] [place] TYPE: Emergency COMPLAINT: - COUGH 11/25/2021 06:[address] [facility] [place] TYPE: Emergency COMPLAINT: - BACK PAIN DIAGNOSES: - Essential (primary) hypertension - Low back pain, unspecified - Type 2 diabetes mellitus without complications - Personal history of nicotine dependence 10/13/2021 09:[address] [facility] [place] TYPE: Emergency COMPLAINT: - RT THIGH SWELLING DIAGNOSES: - Type 2 diabetes mellitus without complications - Personal history of nicotine dependence - Essential (primary) hypertension - Pain in right thigh 09/27/2021 16:[address] [facility] [place] TYPE: Emergency COMPLAINT: - FLANK PAIN DIAGNOSES: - Unspecified abdominal pain - Personal history of nicotine dependence - Type 2 diabetes mellitus without complications - Essential (primary) hypertension 05/23/2021 16:40 [facility] [place] TYPE: Emergency [...] visits to display in this time frame [email or web address]
== END 2021-12-14 18:14 | disposition home or self-care (01) ==
LOC: ED 16:33
DX: J06.9 Acute upper respiratory infection, unspecified (principal); Z20.822 Contact with and (suspected) exposure to COVID-19; E11.9 Type 2 diabetes mellitus without complications; Z87.891 Personal history of nicotine dependence
CPT/HCPCS: 71045; 87502; 99283-25; U0003

== ENCOUNTER 2021-12-20 15:05 | Emergency (ER) | payer OTHER ==
[~2021-12-20] VITALS: Ht 160 cm; Wt 51.5 kg
--- OUTSIDE RECORDS SUMMARY | 2021-12-20 15:08 | XMS ---
PreManage Notification: KENY WELCH Security Nailer Hand Events No recent Security Events currently on file CRITERIA MET - Group Notification - [facility] - 2 Visits in 30 Days CARE PROVIDERS DL ARNETT Physician Decision Analyst 09/01/2018-Current PHONE: [phone] [facility]: Federally Qualified 02/24/2019-[facility] ([facility]) [facility] PHONE: [phone] Surya has no Care Guidelines for this patient. Care History Social 02/18/2018 [facility] PATIENT GIVEN CONTACT INFORMATION TO ENTERTAINMENT MUSICIAN TO APPLY FOR STATE COVERAGE. Medical/Surgical 09/08/2018 [facility] - [facility] IS UNABLE TO CONTACT PATIENT- CONTACT NUMBER INVALID - IF PATIENT IS SEEN IN THE ED AND IS WILLING TO ACCEPT HELP FOR TREATMENT PLEASE CONTACT [place] A\T\amp; D SERVICES [phone] AND REQUEST TO SPEAK WITH VAMSI. - PLEASE CONTACT Mihir- NAHEED- [phone] WHEN PATIENT IS SEEN IN THE ED. 09/01/2018 [facility] - INVALID CONTACT INFO- CONTACT NUMBER IS NO LONGER IN SERVICE - IF PATIENT IS SEEN IN THE ED DURING BUSINESS HOURS PLEASE CONTACT CHRISTIANA EXT [phone] TO APPLY FOR MEDICAID BENEFITS. PATIENT NEEDS A PCP AND NEEDS TO APPLY FOR INSURANCE. - PATIENT HAS NOT BEEN SEEN BY PCP ARTHUR ARNETT. - PATIENT DOES NOT HAVE A PCP IN THE AREA. - PLEASE REFER PATIENT TO [facility] IF PATIENT IS SEEN FOR NON EMERGENT MEDICAL NEEDS. E.D. VISIT COUNT (12 MO.) 7 [facility]. TOTAL 7 NOTE: Visits indicate total known visits. ED/C VISIT TRACKING (12 MO.) 12/20/2021 15:06 [facility] [place] TYPE: Emergency COMPLAINT: - CHEST PAIN 12/14/2021 16:34 [facility] [place] TYPE: Emergency COMPLAINT: - COUGH DIAGNOSES: - Acute upper respiratory infection, unspecified - Cough, unspecified - Personal history of nicotine dependence - Contact with and (suspected) exposure to COVID-19 - Type 2 diabetes mellitus without complications 11/25/2021 06:57 [facility] [place] TYPE: Emergency COMPLAINT: - BACK PAIN DIAGNOSES: - Essential (primary) hypertension - Low back pain, unspecified - Type 2 diabetes mellitus without complications - Personal history of nicotine dependence 10/13/2021 09:38 [facility] [place] TYPE: Emergency COMPLAINT: - RT THIGH SWELLING DIAGNOSES: - Type 2 diabetes mellitus without complications - Personal history of nicotine dependence - Essential (primary) hypertension - Pain in right thigh 09/27/2021 16:13 [facility] [place] TYPE: Emergency COMPLAINT: - FLANK PAIN DIAGNOSES: - Unspecified abdominal pain - Personal history of nicotine dependence - Type 2 diabetes mellitus without complications - Essential (primary) hypertension 05/23/2021 16:40 [facility] [place] TYPE: Emergency COMPLAINT: - LOWER BACK PAIN/STOMACH PAIN DIAGNOSES: - Urinary tract infection, site not specified - Personal history of nicotine dependence - Epigastric pain - Type 2 diabetes mellitus without complications - Essential (primary) hypertension - Umbilical hernia without obstruction or gangrene 02/19/2021 08:55 [facility] [place] TYPE: Emergency [...] visits to display in this time frame [email or web address]
--- NOTE | 2021-12-21 15:34 | EKG ---
[facility] [address] [place], [place] [address] Signed Normal sinus rhythm Minimal voltage criteria for LVH, may be normal variant ( Sokolow-Alfred ) Borderline ECG No previous ECGs available Confirmed by JARRET CALDWELL MD ([id number]) on 12/21/2021 3:34:40 PM Electronically Signed By: JARRET CALDWELL MD 12/21/21 1534 PATIENT NAME: KENY WELCH Electrocardiogram DATE OF : 74 PHYSICIAN: JARRET CALDWELL MD REPORT #: [id number] REPORT IS CONFIDENTIAL AND NOT TO BE RELEASED WITHOUT AUTHORIZATION
== END 2021-12-20 18:30 | disposition home or self-care (01) ==
LOC: ED 15:05
DX: R07.89 Other chest pain (principal); I10 Essential (primary) hypertension; E11.9 Type 2 diabetes mellitus without complications; Z87.891 Personal history of nicotine dependence
CPT/HCPCS: 36415; 71046; 80053; 83735; 84484; 85025; 93005; 93010; 99285-25

== ENCOUNTER 2021-12-23 12:25 | Emergency (ER) | payer OTHER ==
[~2021-12-23] VITALS: Ht 160 cm; Wt 55.6 kg
--- OUTSIDE RECORDS SUMMARY | 2021-12-23 12:26 | XMS ---
PreManage Notification: KENY WELCH Security Batting Machine Operator Insulation Events No recent Security Events currently on file CRITERIA MET - 6 ED Visits in 6 Months - [facility] - 2 Visits in 30 Days - Group Notification CARE PROVIDERS DL ARNETT Physician Shucker 09/01/2018-Current PHONE: [phone] [facility]/Center: Federally Qualified 02/24/2019-[facility] ([facility]) [facility] PHONE: [phone] Surya has no Care Guidelines for this patient. Care History Social 02/18/2018 [facility] PATIENT GIVEN CONTACT INFORMATION TO BOAT OPERATOR TO APPLY FOR STATE COVERAGE. Medical/Surgical 09/08/2018 [facility] - [facility] IS UNABLE TO CONTACT PATIENT- CONTACT NUMBER INVALID - IF PATIENT IS SEEN IN THE ED AND IS WILLING TO ACCEPT HELP FOR TREATMENT PLEASE CONTACT [facility] [phone] AND REQUEST TO SPEAK WITH VAMSI. - PLEASE CONTACT TAELuke FARFAN- [phone] WHEN PATIENT IS SEEN IN THE ED. 09/01/2018 [facility] - INVALID CONTACT INFO- CONTACT NUMBER IS NO LONGER IN SERVICE - IF PATIENT IS SEEN IN THE ED DURING BUSINESS HOURS PLEASE CONTACT CHRISTIANA EXT [phone] TO APPLY FOR MEDICAID BENEFITS. PATIENT NEEDS A PCP AND NEEDS TO APPLY FOR INSURANCE. - PATIENT HAS NOT BEEN SEEN BY PCP ARTHUR ARNETT. - PATIENT DOES NOT HAVE A PCP IN THE AREA. - PLEASE REFER PATIENT TO [facility] WALK IN CLINIC IF PATIENT IS SEEN FOR NON EMERGENT MEDICAL NEEDS. E.D. VISIT COUNT (12 MO.) 8 [facility]. TOTAL 8 NOTE: Visits indicate total known visits. ED/UCC VISIT TRACKING (12 MO.) 12/23/2021 12:[address] [facility] [address] [facility] [place] TYPE: Emergency COMPLAINT: - COUGH 12/20/2021 15:06 [facility] [place] TYPE: Emergency COMPLAINT: - CHEST PAIN 12/14/2021 16:[address] [facility] [address] [place] TYPE: Emergency COMPLAINT: - COUGH DIAGNOSES: - Acute upper respiratory infection, unspecified - Cough, unspecified - Personal history of nicotine dependence - Contact with and (suspected) exposure to COVID-19 - Type 2 diabetes mellitus without complications 11/25/2021 06:[address] [facility] [place] TYPE: Emergency COMPLAINT: - BACK PAIN DIAGNOSES: - Essential (primary) hypertension - Low back pain, unspecified - Type 2 diabetes mellitus without complications - Personal history of nicotine dependence 10/13/2021 09:38 [facility] [place]: Emergency COMPLAINT: - RT THIGH SWELLING DIAGNOSES: - Type 2 diabetes mellitus without complications - Personal history of nicotine dependence - Essential (primary) hypertension - Pain in right thigh 09/27/2021 16:13 [facility] [place] TYPE: Emergency [...] visits to display in this time frame [id number]
== END 2021-12-23 17:00 | disposition home or self-care (01) ==
LOC: ED 12:25
DX: J45.909 Unspecified asthma, uncomplicated (principal); J06.9 Acute upper respiratory infection, unspecified; Z20.822 Contact with and (suspected) exposure to COVID-19; I10 Essential (primary) hypertension; E11.9 Type 2 diabetes mellitus without complications; Z87.891 Personal history of nicotine dependence
CPT/HCPCS: 87502; 99283; C9803; U0003

== ENCOUNTER 2021-12-28 07:51 | Inpatient (IN) | payer OTHER ==
[~2021-12-28] VITALS: Ht 160 cm; Wt 55.5 kg
--- OUTSIDE RECORDS SUMMARY | 2021-12-28 07:54 | XMS ---
PreManage Notification: KENY WELCH Security Fire Suppression Captain Events No recent Security Events currently on file CRITERIA MET - Group Notification - 6 ED Visits in 6 Months - [facility] - 2 Visits in 30 Days CARE PROVIDERS DL ARNETT Physician Automotive Engineering Teacher 09/01/2018-Current PHONE: [phone] [facility]/Center: Federally Qualified 02/24/2019-[facility] ([facility]) [facility] PHONE: [phone] Surya has no Care Guidelines for this patient. Care History Social 02/18/2018 [facility] PATIENT GIVEN CONTACT INFORMATION TO DEWATERING FILTERING SUPERVISOR TO APPLY FOR STATE COVERAGE. Medical/Surgical 09/08/2018 [facility] - [facility] IS UNABLE TO CONTACT PATIENT- CONTACT NUMBER INVALID - IF PATIENT IS SEEN IN THE ED AND IS WILLING TO ACCEPT HELP FOR TREATMENT PLEASE CONTACT [facility]; [facility] [phone] AND REQUEST TO SPEAK WITH VAMSI. - PLEASE CONTACT TAELuke FARFAN- [phone] WHEN PATIENT IS SEEN IN THE ED. 09/01/2018 [facility] - INVALID CONTACT INFO- CONTACT NUMBER IS NO LONGER IN SERVICE - IF PATIENT IS SEEN IN THE ED DURING BUSINESS HOURS PLEASE CONTACT CHRISTIANA EXT [phone] TO APPLY FOR MEDICAID BENEFITS. PATIENT NEEDS A PCP AND NEEDS TO APPLY FOR INSURANCE. - PATIENT HAS NOT BEEN SEEN BY PCP ARTHUR ARNETT. - PATIENT DOES NOT HAVE A PCP IN THE AREA. - PLEASE REFER PATIENT TO [facility] WALK IN CLINIC IF PATIENT IS SEEN FOR NON EMERGENT MEDICAL NEEDS. E.D. VISIT COUNT (12 MO.) 9 [facility]. TOTAL 9 NOTE: Visits indicate total known visits. ED/UCC VISIT TRACKING (12 MO.) 12/28/2021 07:53 [facility] [place] TYPE: Emergency COMPLAINT: - L SIDE CHEST/RIB/ABD PAIN, NAUSEA 12/23/2021 12:25 [facility] [place] TYPE: Emergency COMPLAINT: - COUGH DIAGNOSES: - Essential (primary) hypertension - Acute upper respiratory infection, unspecified - Personal history of nicotine dependence - Type 2 diabetes mellitus without complications - Contact with and (suspected) exposure to COVID-19 - Unspecified asthma, uncomplicated - Cough, unspecified 12/20/2021 15:06 [facility] [place] TYPE: Emergency COMPLAINT: - CHEST PAIN DIAGNOSES: - Other chest pain - Essential (primary) hypertension - Type 2 diabetes mellitus without complications - Personal history of nicotine dependence 12/14/2021 16:34 [facility] [place] TYPE: Emergency COMPLAINT: - COUGH DIAGNOSES: - Acute upper respiratory infection, unspecified - Cough, unspecified - Personal history of nicotine dependence - Contact with and (suspected) exposure to COVID-19 - Type 2 diabetes mellitus without complications 11/25/2021 06:57 [facility] [place] TYPE: Emergency COMPLAINT: - BACK PAIN [...] visits to display in this time frame [id number]
--- NOTE | 2021-12-28 16:00 | NUR ---
REPORT RECIEVED FROM KEVIN CHRISTOPHER IN THE ER. PATIENT ARRIVED VIA STRETCHER. PATIENT WAS ABLE TO TRANSFER SELF FROM STRETCHER TO BED WITH MINIMAL ASSISTANCE. PATIENTS BREATH SOUNDS ARE CLEAR. PATIENTS SPO2 IS 98% ON RA. RR- 20 AND EVEN/UNLABORED. PATIENT COMPLAINS OF A COUGH WITH SOME LEFT SIDED CHECT PAIN WITH COUGHING/MOVEMENT. THIS RN WILL REMAIN AT PATIENTS BEDSIDE TO ADMIT PATIENT INTO CCU.
--- NOTE | 2021-12-28 17:30 | NUR ---
PATIENT RESTING IN BED. MEDICATIONS GIVEN. PATIENT COMPLAISN OF NOT BEING ABLE TO HAVE A GOOD PRODUCTIVE STOOL IN SEVERAL DAYS. MD AWARE AND MEDICATIONS GIVEN. PATIENTS BLOOD SUGAR IS WNL AND NO COVERAGE REQUIRED. PATIENT REMAINS ON RA. DINNER AT THE BEDSIDE. NO OTHER NEEDS AT THIS TIME. PATIENT CALLS APPROPRIATELY. WILL CONTINUE TO CLOSELY MONITOR.
--- NOTE | 2021-12-28 18:00 | NUR ---
PATIENT UP TO THE CAMMODE AND TOLERATED WELL. PATIENT IS STEADY ON HER FEET. PATIENT THEN BACK TO BED. WARM BLANKET PROVIDED. PATIENT DENIES ANY OTHER NEEDS. WILL CONTINUE TO CLOSELY MONITOR.
--- NOTE | 2021-12-28 21:00 | NUR ---
RESPONDED TO PT CALL LIGHT. PT ON THE BEDSIDE COMMODE AND STATED SHE NEEDED A NEW GOWN. PT NOTED TO HAVE HAD AN INCONTINENT LIQUID BM. PT ABLE TO DO OWN PERICARE, NEW GOWN AND ATTENDS PROVIDED TO THE PT. NEW LINENS PLACED. PT ABLE TO GET BACK INTO BED WITHOUT ASSISTANCE AND IS NOW RESTING IN BED. PT REPORTS NOT WANTING ANY MORE SCHEDULED LAXATIVES/STOOL SOFTENENERS TO THIS RN. PT REPORTS NO FURTHER NEEDS AT THIS TIME AND IS NOW RESTING IN BED, CALL LIGHT IN REACH, WILL CONTINUE PLAN OF CARE.
--- NOTE | 2021-12-28 22:07 | NUR ---
PATIENT EATING HER SNACKS. REPORTS PAIN IN LEFT SIDE 10/10 WITH COUGH AND 7/10 AT REST. PRN MOTRIN PROVIDED PER REQUEST. IV ABX STARTED, IV SITES WNL X2. WAITING FOR HS INSULIN UNTIL PATIENT IS DONE WITH PM SNACKS. VS STABLE. TOLERATING ROOM AIR. OCCATIONAL COUGH. DENIES SOB. PATIENT HAD LARGE BM PREVIOUSLY, DECLINED REMAINING BOWEL CARE.
--- NOTE | 2021-12-28 22:27 | NUR ---
PATIENT NOW RESTING WITH EYES CLOSED, VS STABLE. ACCU CHECK AND INSULIN PROVIDED PER ORDER. PATIENT DENIED NEEDS. CALL LIGHT IN REACH.
--- NOTE | 2021-12-29 00:45 | NUR ---
PATIENT CONTINUES TO REST WITH EYES CLOSED. IV FLUIDS PER ORDER, MIDLINE IN RIGHT UPPER APPEARS WNL. VS STABLE. ALLOWED PATIENT TO REST.
--- NOTE | 2021-12-29 03:00 | NUR ---
PATIENT DENIES NEEDS. VS STABLE. IV LFUIDS PER ORDER, SITE WNL. PATIENT ENCOURAGED TO VOID, SHE DENIES NEED. CALL LIGHT IN REACH.
--- NOTE | 2021-12-29 06:00 | NUR ---
PATIENT UP TO BSC. LARGE MIXED STOOL AND URINE. ESTIMATED 800 MLS OF LIQUID. PATIENT DENIES ANY NEW CONCERNS. CONTINUES TO HAVE COUGH WITHOUT SPUTUM. LUNG SOUNDS ARE MORE COARSE IN THE BASES. MIDLINE SITE WNL, IVF PER ORDER. PERIPHERAL SITE IN LEFT FOREARM FLUSHED AND IS PAINFUL, APPEARS INFILTRATED. SITE DC WNL. PATIENT PROVIDED WITH ENSURE.
--- NOTE | 2021-12-29 09:55 | NUR ---
RESTING, IVF PATENT.
--- NOTE | 2021-12-29 12:30 | NUR ---
DR. CALDWELL HERE TO SEE PATIENT. ORDERS RECIEVED. C/O RIB/SUBSTERNAL PAIN, RATES 10/. MOTRIN 400 MG PO GIVEN. CONTINUES WITH FREQUENT CYCLIC COUGH. NOT ABLE TO EAT LUCH DUE TO COUGHING. HR HAS BEEN 110-126 THIS AFTERNOON.
--- NOTE | 2021-12-29 14:00 | NUR ---
HAS BEEN SLEEPING, NO RESP DISTRESS NOTED.
--- NOTE | 2021-12-29 15:12 | NUR ---
SLEEPING, NO DISTRESS NOTED.
--- NOTE | 2021-12-29 16:00 | NUR ---
WOKE FOR ASSESSMENT. STATES SHE FEELS A LITTLE BETTER NOW. COUGH MEDICATION GIVEN. NON-PRODUCTIVE COUGH. UP TO COMMODE. STABLE ON FEET, DENIES INCREASED SHORTNESS OF BREATH WITH EXERTION. ASKING ABOUT DINNER.
--- NOTE | 2021-12-29 21:55 | NUR ---
PT TX FROM CCU. ALERT AND ORIENTED. SCHEDULED MEDS ADMIN PER EMAR. PRN FOR LEFT SIDE PAIN AND COUGH ADMIN PER EMAR. RIGHT MIDLINE FLUSHED WITH NS, BRISK BLOOD RETURN NOTED. SITE WNL. IV ABX INFUSING WNL. EVENING ASSESSMENT COMPLETE. MINIMAL SBA TO BR TO VOID. CLEAN BRIEF PROVIDED. GAIT STEADY. BACK TO BED, DERICK WELL. WARM BLANKET AND SNACK PROVIDED. PT DENIES QUESTIONS OR CONCERNS. CALL LIGHT IN REACH.
--- NOTE | 2021-12-29 23:18 | NUR ---
PT RESTING IN BED WITH EYES CLOSED. RESPIRATIONS EVEN. CALL LIGHT IN REACH.
--- NOTE | 2021-12-30 00:34 | NUR ---
CALL LIGHT ANSWERED. PT UP TO BR WITH MINIMAL ASSIST TO VOID 350 ML YELLOW URINE. PT ABLE TO DO OWN JESÚS CARE. GAIT STEADY. BACK TO BED. CRACKERS PROVIDED PER REQUEST. NEW BAG IVF HUNG. NO FURTHER NEEDS.
--- NOTE | 2021-12-30 02:34 | NUR ---
PT RESTING IN BED WITH EYES CLOSED. RESPIRATIONS EVEN. CALL LIGHT IN REACH.
--- NOTE | 2021-12-30 03:00 | NUR ---
CALL LIGHT ANSWERED. IV PUMP ALARMING. ISSUE RESOLVED. PT UP TO BR TO VOID. BACK TO BED, DERICK WELL. PRN FOR COUGH ADMIN PER EMAR. ASSESSMENT COMPLETE. PT DENIES FURTHER NEEDS. CALL LIGHT IN REACH.
--- NOTE | 2021-12-30 06:35 | NUR ---
PT RESTING WITH EYES CLOSED. AWAKENS FOR VS AND I&O. PT AFEBRILE. VOID QS. DENIES NEEDS.
--- NOTE | 2021-12-30 08:33 | NUR ---
RECD REPORT FROM NIGHT RN AT 0730, PT. RESTING OOB IN CHAIR, WAITING FOR BREAKFAST. REPORTS DRY COUGH AND OSULLIVAN, GAVE TYLENOL AND GUIAFENESIN, WARM BLANKET. LUNGS WITH A SLIGHT CRACKLE LLL. INDEPENDENT IN ROOM, CALLS FOR NEEDS. BG 107 THIS AM.
--- NOTE | 2021-12-30 08:57 | EKG ---
[facility] [address] [facility] [place] [address] Signed Sinus tachycardia Right atrial enlargement Moderate voltage criteria for LVH, may be normal variant ( Sokolow-Alfred , Vinod product ) Borderline ECG When compared with ECG of 20-DEC-2021 15:09, No significant change was found Confirmed by JARRET CALDWELL MD ([id number]) on 12/30/2021 8:57:09 AM Electronically Signed By: JRARET CALDWELL MD 12/30/21 0857 PATIENT NAME: KANDYKENY GHOTRA Electrocardiogram DATE OF : 74 PHYSICIAN: JARRET CALDWELL MD REPORT #: [id number] REPORT IS CONFIDENTIAL AND NOT TO BE RELEASED WITHOUT AUTHORIZATION
--- NOTE | 2021-12-30 09:23 | NUR ---
PATIENT DONE WITH SHOWER. RIGHT ARM MIDLINE FLUSHED WITH 10CC NS AND IVF RESUMED. PATIENT IS IN BED AT THIS TIME.
--- NOTE | 2021-12-30 12:02 | NUR ---
OOB IN CHAIR, INDEPENDENT IN ROOM, DENIES NEEDS AT THIS TIME.
--- NOTE | 2021-12-30 12:52 | NUR ---
ROUNDED ON PT., SHE IS BACK IN BED RESTING, WANTS TO TAKE A NAP, NO COMPLAINTS.
[2021-12-30] MEDS ORDERED: CEFPODOXIME PR200 MG PO (13:27)
[2021-12-30] MEDS ORDERED: BENZONATATE100 MG PO (13:28)
[2021-12-30] MEDS ORDERED: IBUPROFEN400 MG PO (13:28)
[2021-12-30] MEDS ORDERED: GUAIFENESIN-CO118 ML PO (13:29)
--- NOTE | 2021-12-30 14:06 | NUR ---
PREPARING FOR DISCHARGE, DR. CALDWELL REQUESTED TO RUN BOTH ANTIBIOTICS PRIOR TO DC, SHE WAS GIVEN NEW RX PER PHARMACIST INSTRUCTION AND WILL START HER ANTIBIOTICS TOMORROW, VERBALIZED UNDERSTANDING AND IN WRITTEN INSTRUCTIONS. IV INFUSING, WILL REVIEW DC PAPERWORK.
== END 2021-12-30 15:25 | disposition home or self-care (01) | DRG 871 ==
LOC: ED 07:51 → CCU 15:01 → MS 12-29 20:33
PROVIDERS: ADMIT Internal Medicine; ATTEND Internal Medicine
PROC: 05HY33Z Insertion of Infusion Device into Upper Vein, Percutaneous Approach (ICD-10-PCS; 2021-12-28)
PROC: 3E03329 Introduction of Other Anti-infective into Peripheral Vein, Percutaneous Approach (ICD-10-PCS; principal; 2021-12-28 11:15)
DX: A41.50 Gram-negative sepsis, unspecified (principal); J15.6 Pneumonia due to other Gram-negative bacteria; J13 Pneumonia due to Streptococcus pneumoniae; N17.9 Acute kidney failure, unspecified; E87.1 Hypo-osmolality and hyponatremia; Z20.822 Contact with and (suspected) exposure to COVID-19; R65.20 Severe sepsis without septic shock; E80.6 Other disorders of bilirubin metabolism; E86.1 Hypovolemia; K59.00 Constipation, unspecified; D25.9 Leiomyoma of uterus, unspecified; K76.0 Fatty (change of) liver, not elsewhere classified; E11.9 Type 2 diabetes mellitus without complications; I10 Essential (primary) hypertension; Z87.891 Personal history of nicotine dependence
CPT/HCPCS: 36415; 36569; 71046; 74177; 80053; 81001; 83036; 83605; 84484; 85025; 85379; 87070; 87205; 87502; 93005; 93010; 96375; 99285-25; A9270; C1751; C9803; J0456; J0692; J0696; J1650; J1815; J2405; J7030; J7040; J7060; J7121; Q9967; U0003

== ENCOUNTER 2022-02-11 10:08 | Emergency (ER) | payer OTHER ==
[~2022-02-11] VITALS: Ht 160 cm; Wt 57.4 kg
[~2022-02-11 10:08] MED LIST changes: +BENZONATATE100 MG PO; +CEFPODOXIME PR200 MG PO; +GUAIFENESIN-CO118 ML PO; +IBUPROFEN400 MG PO
--- OUTSIDE RECORDS SUMMARY | 2022-02-11 10:40 | XMS ---
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 - 2 Visits in 30 Days - Group Notification - 6 ED Visits in 6 Months CARE PROVIDERS DL ARNETT Physician Campaign Associate 09/01/2018-Current PHONE: [phone] [facility]/Center: Federally Qualified 02/24/2019-[facility] ([facility]) [facility] PHONE: [phone] Surya has no Care Guidelines for this patient. Care History Social 02/18/2018 [facility] PATIENT GIVEN CONTACT INFORMATION TO VETERINARY PRACTITIONER TO APPLY FOR STATE COVERAGE. Medical/Surgical 09/08/2018 [facility] - [facility] IS UNABLE TO CONTACT PATIENT- CONTACT NUMBER INVALID - IF PATIENT IS SEEN IN THE ED AND IS WILLING TO ACCEPT HELP FOR TREATMENT PLEASE CONTACT [facility]; D SERVICES [phone] AND REQUEST TO SPEAK WITH VAMSI. - PLEASE CONTACT TAELuke FARFAN- [phone] WHEN PATIENT IS SEEN IN THE ED. 09/01/2018 [facility] - INVALID CONTACT INFO- CONTACT NUMBER IS NO LONGER IN SERVICE - IF PATIENT IS SEEN IN THE ED DURING BUSINESS HOURS PLEASE CONTACT CHRISTIANA EXT [phone] TO APPLY FOR MEDICAID BENEFITS. PATIENT NEEDS A PCP AND NEEDS TO APPLY FOR INSURANCE. - PATIENT HAS NOT BEEN SEEN BY PCP ARTHUR ARNETT. - PATIENT DOES NOT HAVE A PCP IN THE AREA. - PLEASE REFER PATIENT TO [facility] WALK IN CLINIC IF PATIENT IS SEEN FOR NON EMERGENT MEDICAL NEEDS. E.D. VISIT COUNT (12 MO.) 11 [facility]. TOTAL 11 NOTE: Visits indicate total known visits. ED/UCC VISIT TRACKING (12 MO.) 02/11/2022 10:08 [facility] [place] Emergency COMPLAINT: - L SIDE RIB PAIN 02/01/2022 17:23 [facility] [place]: Emergency COMPLAINT: - FALL DIAGNOSES: - Contusion of left front wall of thorax, initial encounter - Essential (primary) hypertension - Fall (on)(from) sidewalk curb, initial encounter - Personal history of nicotine dependence - Parking lot as the place of occurrence of the external cause - Pleurodynia - Type 2 diabetes mellitus without complications 12/28/2021 07:53 [facility] [place] TYPE: Emergency [...] 2 diabetes mellitus without complications 11/25/2021 06:57 [facility] [place]: Emergency COMPLAINT: [...] - Nausea INPATIENT VISIT TRACKING (12 MO.) 12/28/2021 15:01 [facility] [place] TYPE: Medical Surgical COMPLAINT: - SEPSIS DIAGNOSES: - Pneumonia due to Streptococcus pneumoniae - Hypo-osmolality and hyponatremia - Hypo-osmolality and hyponatremia - Fatty (change of) liver, not elsewhere classified - Pneumonia due to other Gram-negative bacteria - Contact with and (suspected) exposure to COVID-19 - Acute kidney failure, unspecified - Severe sepsis without septic shock - Acute kidney failure, unspecified - Personal history of nicotine dependence - Essential (primary) hypertension - Leiomyoma of uterus, unspecified - Hypovolemia - Fatty (change of) liver, not elsewhere classified - Severe sepsis without septic shock - Type 2 diabetes mellitus without complications - Personal history of nicotine dependence - Essential (primary) hypertension - Other disorders of bilirubin metabolism - Constipation, unspecified - Pneumonia due to Streptococcus pneumoniae - Other disorders of bilirubin metabolism - Gram-negative sepsis, unspecified - Constipation, unspecified - Hypovolemia - Leiomyoma of uterus, unspecified - Sepsis, unspecified organism - Gram-negative sepsis, unspecified - Pneumonia due to other Gram-negative bacteria - Type 2 diabetes mellitus without complications - Contact with and (suspected) exposure to COVID-19 [email or web address]
[2022-02-11] MEDS ORDERED: LIDODERM1 EACH TD (12:14)
== END 2022-02-11 12:30 | disposition home or self-care (01) ==
LOC: ED 10:08
DX: R07.89 Other chest pain (principal); R10.9 Unspecified abdominal pain; I10 Essential (primary) hypertension; E11.9 Type 2 diabetes mellitus without complications; W01.0XXA Fall on same level from slipping, tripping and stumbling without subsequent striking against object, initial encounter; Z87.891 Personal history of nicotine dependence
CPT/HCPCS: 71046; 81001; 96372; 99284-25; A9270; J1885

== ENCOUNTER 2022-05-19 09:21 | Emergency (ER) | payer OTHER ==
[~2022-05-19] VITALS: Ht 160 cm; Wt 61.1 kg
[~2022-05-19 09:21] MED LIST changes: +LIDODERM1 EACH TD
--- OUTSIDE RECORDS SUMMARY | 2022-05-19 09:23 | XMS ---
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 Care History Social 02/18/2018 [facility] PATIENT GIVEN CONTACT INFORMATION TO FLOOR AND WALL APPLIER LIQUID TO APPLY FOR STATE COVERAGE. Medical/Surgical 09/08/2018 [facility] - [facility] IS UNABLE TO CONTACT PATIENT- CONTACT NUMBER INVALID - IF PATIENT IS SEEN IN THE ED AND IS WILLING TO ACCEPT HELP FOR TREATMENT PLEASE CONTACT [facility]; D SERVICES [phone] AND REQUEST TO SPEAK WITH VAMSI. - PLEASE CONTACT [facility]- [phone] WHEN PATIENT IS SEEN IN THE ED. 09/01/2018 [facility] - INVALID CONTACT INFO- CONTACT NUMBER IS NO LONGER IN SERVICE - IF PATIENT IS SEEN IN THE ED DURING BUSINESS HOURS PLEASE CONTACT CHRISTIANA EXT [phone] TO APPLY FOR MEDICAID BENEFITS. PATIENT NEEDS A PCP AND NEEDS TO APPLY FOR INSURANCE. - PATIENT HAS NOT BEEN SEEN BY PCP ARTHUR ARNETT. - PATIENT DOES NOT HAVE A PCP IN THE AREA. - PLEASE REFER PATIENT TO [facility] WALK IN CLINIC IF PATIENT IS SEEN FOR NON EMERGENT MEDICAL NEEDS. E.D. VISIT COUNT (12 MO.) 11 [facility] TOTAL 11 NOTE: Visits indicate total known visits. ED/UCC VISIT TRACKING (12 MO.) 05/19/2022 09:[address] [facility] [place] TYPE: Emergency COMPLAINT: - VOMITING 02/11/2022 10:[address] [facility] [place] TYPE: Emergency COMPLAINT: - L SIDE RIB PAIN DIAGNOSES: - Unspecified abdominal pain - Personal history of nicotine dependence - Type 2 diabetes mellitus without complications - Fall on same level from slipping, tripping and stumbling without subsequent striking against object, initial encounter - Other chest pain - Essential (primary) hypertension 02/01/2022 17:23 [facility] [place]: Emergency COMPLAINT: - FALL DIAGNOSES: - Fall (on)(from) sidewalk curb, initial encounter - Contusion of left front wall of thorax, initial encounter - Pleurodynia - Personal history of nicotine dependence - Essential (primary) hypertension - Type 2 diabetes mellitus without complications - Parking lot as the place of occurrence of the external cause 12/28/2021 07:[address] [facility] [place] TYPE: Emergency COMPLAINT: - L SIDE CHEST/RIB/ABD PAIN, NAUSEA 12/23/2021 12:25 [facility] [place] TYPE: Emergency COMPLAINT: - COUGH DIAGNOSES: - Personal history of nicotine dependence - Essential (primary) hypertension - Unspecified asthma, uncomplicated - Type 2 diabetes mellitus without complications - Acute upper respiratory infection, unspecified - Cough, unspecified - Contact with and (suspected) exposure to COVID-19 12/20/2021 15:06 [facility] [place]: Emergency COMPLAINT: - CHEST PAIN DIAGNOSES: - Type 2 diabetes mellitus without complications - Other chest pain - Personal history of nicotine dependence - Essential (primary) hypertension 12/14/2021 16:34 [facility] [place] TYPE: Emergency COMPLAINT: - COUGH DIAGNOSES: - Personal history of nicotine dependence - Acute upper respiratory infection, unspecified - Contact with and (suspected) exposure to COVID-19 - Cough, unspecified - Type 2 diabetes mellitus without complications 11/25/2021 06:57 [facility] [place]: Emergency COMPLAINT: - BACK PAIN DIAGNOSES: - Type 2 diabetes mellitus without complications - Essential (primary) hypertension - Personal history of nicotine dependence - Low back pain, unspecified 10/13/2021 09:38 [facility] [place] TYPE: Emergency COMPLAINT: - RT THIGH SWELLING DIAGNOSES: - Essential (primary) hypertension - Type 2 diabetes mellitus without complications - Pain in right thigh - Personal history of nicotine dependence 09/27/2021 16:13 [facility] [place]: Emergency COMPLAINT: - FLANK PAIN DIAGNOSES: - Type 2 diabetes mellitus without complications - Unspecified abdominal pain - Essential (primary) hypertension - Personal history of nicotine dependence 05/23/2021 16:40 [facility] TYPE: Emergency COMPLAINT: - LOWER BACK PAIN/STOMACH PAIN DIAGNOSES: - Epigastric pain - Urinary tract infection, site not specified - Umbilical hernia without obstruction or gangrene - Type 2 diabetes mellitus without complications - Personal history of nicotine dependence - Essential (primary) hypertension INPATIENT VISIT TRACKING (12 MO.) 12/28/2021 15:01 [facility] [place] TYPE: Medical Surgical COMPLAINT: - SEPSIS DIAGNOSES: - Type 2 diabetes mellitus without complications - Fatty (change of) liver, not elsewhere classified - Gram-negative sepsis, unspecified - Acute kidney failure, unspecified - Personal history of nicotine dependence - Type 2 diabetes mellitus without complications - Hypovolemia - Acute kidney failure, unspecified - Essential (primary) hypertension - Hypo-osmolality and hyponatremia - Sepsis, unspecified organism - Essential (primary) hypertension - Constipation, unspecified - Fatty (change of) liver, not elsewhere classified - Pneumonia due to other Gram-negative bacteria - Hypovolemia - Other disorders of bilirubin metabolism - Contact with and (suspected) exposure to COVID-19 - Contact with and (suspected) exposure to COVID-19 - Severe sepsis without septic shock - Constipation, unspecified - Severe sepsis without septic shock - Pneumonia due to Streptococcus pneumoniae - Leiomyoma of uterus, unspecified - Personal history of nicotine dependence - Other disorders of bilirubin metabolism - Hypo-osmolality and hyponatremia - Gram-negative sepsis, unspecified - Leiomyoma of uterus, unspecified - Pneumonia due to Streptococcus pneumoniae - Pneumonia due to other Gram-negative bacteria [email or web address]
== END 2022-05-19 12:05 | disposition home or self-care (01) ==
LOC: ED 09:21
DX: R05.9 Cough, unspecified (principal); I10 Essential (primary) hypertension; E11.9 Type 2 diabetes mellitus without complications; Z87.891 Personal history of nicotine dependence
CPT/HCPCS: 71045; 99283-25

== ENCOUNTER 2022-08-05 21:02 | Emergency (ER) | payer OTHER ==
[~2022-08-05] VITALS: Ht 160 cm; Wt 64.3 kg
--- OUTSIDE RECORDS SUMMARY | 2022-08-05 21:04 | XMS ---
PreManage Notification: KENY WELCH Security Receiving Checker Events 1 event(s) in the past 18 months Most recent security events: Elopement at [facility] 07/29/2022 13:44 - Patient eloped before treatment completed. - Patient with suicidal and/or homicidal ideations eloped. - Patient eloped with IV in place. Details: Patient LWBS. CRITERIA MET - [facility] - 2 Visits in 30 Days - Group Notification CARE PROVIDERS DL ARNETT Physician Floor Scrubber 09/01/2018-Current PHONE: [phone] [facility]/Center: Federally Qualified 02/24/2019-Current [facility] ([facility]) [facility] PHONE: [phone] Surya has no Care Guidelines for this patient. Care History Social 02/18/2018 [facility] PATIENT GIVEN CONTACT INFORMATION TO PHYSICIAN PEDIATRICIAN TO APPLY FOR STATE COVERAGE. Medical/Surgical 09/08/2018 [facility] - CHW IS UNABLE TO CONTACT PATIENT- CONTACT NUMBER INVALID - IF PATIENT IS SEEN IN THE ED AND IS WILLING TO ACCEPT HELP FOR TREATMENT PLEASE CONTACT [facility] A\Diego\amp; [facility] [phone] AND REQUEST TO SPEAK WITH VAMSI. - PLEASE CONTACT [facility]- [facility]- [phone] WHEN PATIENT IS SEEN IN THE ED. 09/01/2018 [facility] - INVALID CONTACT INFO- CONTACT NUMBER IS NO LONGER IN SERVICE - IF PATIENT IS SEEN IN THE ED DURING BUSINESS HOURS PLEASE CONTACT CHRISTIANA EXT [phone] TO APPLY FOR MEDICAID BENEFITS. PATIENT NEEDS A PCP AND NEEDS TO APPLY FOR INSURANCE. - PATIENT HAS NOT BEEN SEEN BY PCP ARTHUR ARNETT. - PATIENT DOES NOT HAVE A PCP IN THE AREA. - PLEASE REFER PATIENT TO [facility] IN CLINIC IF PATIENT IS SEEN FOR NON EMERGENT MEDICAL NEEDS. E.D. VISIT COUNT (12 MO.) 12 [facility] TOTAL 12 NOTE: Visits indicate total known visits. ED/UCC VISIT TRACKING (12 MO.) 08/05/2022 21:02 [facility] [place] TYPE: Emergency COMPLAINT: - RIGHT HIP PAIN 07/29/2022 13:44 [facility] [place] TYPE: Emergency COMPLAINT: - FEELING UNBALANCED, DIABETIC, HIGH B/P 05/19/2022 09:21 [facility] [place] TYPE: Emergency COMPLAINT: - VOMITING DIAGNOSES: - Type 2 diabetes mellitus without complications - Essential (primary) hypertension - Personal history of nicotine dependence - Cough, unspecified 02/11/2022 10:08 [facility] [place] TYPE: Emergency COMPLAINT: - L SIDE RIB PAIN DIAGNOSES: - Other chest pain - Essential (primary) hypertension - Unspecified abdominal pain - Personal history of nicotine dependence - Type 2 diabetes mellitus without complications - Fall on same level from slipping, tripping and stumbling without subsequent striking against object, initial encounter 02/01/2022 17:23 [facility] [place] TYPE: Emergency COMPLAINT: - FALL DIAGNOSES: - Essential (primary) hypertension - Type 2 diabetes mellitus without complications - Parking lot as the place of occurrence of the external cause - Fall (on)(from) sidewalk curb, initial encounter - Contusion of left front wall of thorax, initial encounter - Pleurodynia - Personal history of nicotine dependence 12/28/2021 07:53 [facility] [place] TYPE: Emergency COMPLAINT: - L SIDE CHEST/RIB/ABD PAIN, NAUSEA 12/23/2021 12:25 [facility] TYPE: Emergency COMPLAINT: - COUGH DIAGNOSES: - Acute upper respiratory infection, unspecified - Cough, unspecified - Contact with and (suspected) exposure to COVID-19 - Personal history of nicotine dependence - Essential (primary) hypertension - Unspecified asthma, uncomplicated - Type 2 diabetes mellitus without complications 12/20/2021 15:06 [facility] [place] TYPE: Emergency COMPLAINT: - CHEST PAIN DIAGNOSES: - Essential (primary) hypertension - Type 2 diabetes mellitus without complications - Other chest pain - Personal history of nicotine dependence 12/14/2021 16:34 [facility] [place] TYPE: Emergency COMPLAINT: - COUGH DIAGNOSES: - Cough, unspecified - Type 2 diabetes mellitus without complications - Personal history of nicotine dependence - Acute upper respiratory infection, unspecified - Contact with and (suspected) exposure to COVID-19 11/25/2021 06:57 [facility] [place] TYPE: Emergency COMPLAINT: - BACK PAIN DIAGNOSES: - Low back pain, unspecified - Type 2 diabetes mellitus without complications - Essential (primary) hypertension - Personal history of nicotine dependence 10/13/2021 09:38 [facility] [place] TYPE: Emergency COMPLAINT: - RT THIGH SWELLING DIAGNOSES: - Personal history of nicotine dependence - Essential (primary) hypertension - Type 2 diabetes mellitus without complications - Pain in right thigh 09/27/2021 16:13 [facility] [place] TYPE: Emergency COMPLAINT: - FLANK PAIN DIAGNOSES: - Personal history of nicotine dependence - Type 2 diabetes mellitus without complications - Unspecified abdominal pain - Essential (primary) hypertension INPATIENT VISIT TRACKING (12 MO.) 12/28/2021 15:01 [facility] [place] TYPE: Medical Surgical COMPLAINT: - SEPSIS DIAGNOSES: - Other disorders of bilirubin metabolism - [...] due to other Gram-negative bacteria - Hypovolemia [email or web address]
== END 2022-08-05 22:00 | disposition home or self-care (01) ==
LOC: ED 21:02
DX: S70.01XA Contusion of right hip, initial encounter (principal); I10 Essential (primary) hypertension; E11.9 Type 2 diabetes mellitus without complications; Z87.891 Personal history of nicotine dependence; W00.0XXA Fall on same level due to ice and snow, initial encounter
CPT/HCPCS: 72170; 99283-25

== ENCOUNTER 2022-08-10 15:12 | Emergency (ER) | payer OTHER ==
[~2022-08-10] VITALS: Ht 160 cm; Wt 64.3 kg
--- OUTSIDE RECORDS SUMMARY | 2022-08-10 15:15 | XMS ---
PreManage Notification: KENY WELCH Security Distribution Center Supervisor Events 1 event(s) in the past 18 months Most recent security events: Elopement at [facility] 07/29/2022 13:44 - Patient eloped before treatment completed. - Patient with suicidal and/or homicidal ideations eloped. - Patient eloped with IV in place. Details: Patient LWBS. CRITERIA MET - Group Notification - [facility] - 2 Visits in 30 Days CARE PROVIDERS DL ARNETT Physician Family Caseworker 09/01/2018-Current PHONE: [phone] [facility]/Center: Federally Qualified 02/24/2019-Current [facility] ([facility]) [facility] PHONE: [phone] Surya has no Care Guidelines for this patient. Care History Social 02/18/2018 [facility] PATIENT GIVEN CONTACT INFORMATION TO MEAT CARRIER TO APPLY FOR STATE COVERAGE. Medical/Surgical 09/08/2018 [facility] - CHW IS UNABLE TO CONTACT PATIENT- CONTACT NUMBER INVALID - IF PATIENT IS SEEN IN THE ED AND IS WILLING TO ACCEPT HELP FOR TREATMENT PLEASE CONTACT [facility] A\T\amp; [facility] [phone] AND REQUEST TO SPEAK WITH VAMSI. - PLEASE CONTACT [facility]- [place]- [phone] WHEN PATIENT IS SEEN IN THE ED. 09/01/2018 [facility] - INVALID CONTACT INFO- CONTACT NUMBER IS NO LONGER IN SERVICE - IF PATIENT IS SEEN IN THE ED DURING BUSINESS HOURS PLEASE CONTACT CHRISTIANA EXT [phone] TO APPLY FOR MEDICAID BENEFITS. PATIENT NEEDS A PCP AND NEEDS TO APPLY FOR INSURANCE. - PATIENT HAS NOT BEEN SEEN BY PCP ARTHUR ARNETT. - PATIENT DOES NOT HAVE A PCP IN THE AREA. - PLEASE REFER PATIENT TO [facility] IN CLINIC IF PATIENT IS SEEN FOR NON EMERGENT MEDICAL NEEDS. E.D. VISIT COUNT (12 MO.) 13 [facility] TOTAL 13 NOTE: Visits indicate total known visits. ED/UCC VISIT TRACKING (12 MO.) 08/10/2022 15:12 [facility] [place] TYPE[place] Emergency COMPLAINT: - EXTERMITY PAIN/INJURY 08/05/2022 21:02 [facility] [place] TYPE: Emergency COMPLAINT: - RIGHT HIP PAIN/INJ DIAGNOSES: - Contusion of right hip, initial encounter - Pain in right hip - Type 2 diabetes mellitus without complications - Essential (primary) hypertension - Fall on same level due to ice and snow, initial encounter - Personal history of nicotine dependence 07/29/2022 13:[address] [facility] [place] TYPE: Emergency COMPLAINT: - FEELING UNBALANCED, DIABETIC, HIGH B/P 05/19/2022 09:21 [facility] [place] TYPE: Emergency COMPLAINT: - VOMITING DIAGNOSES: - Essential (primary) hypertension - Personal history of nicotine dependence - Cough, unspecified - Type 2 diabetes mellitus without complications 02/11/2022 10:08 [facility] [place] TYPE: Emergency COMPLAINT: - L SIDE RIB PAIN DIAGNOSES: - Essential (primary) hypertension - Unspecified abdominal pain - Personal history of nicotine dependence - Type 2 diabetes mellitus without complications - Fall on same level from slipping, tripping and stumbling without subsequent striking against object, initial encounter - Other chest pain 02/01/2022 17:23 [facility] [place] TYPE: Emergency COMPLAINT: - FALL DIAGNOSES: - Type 2 diabetes mellitus without complications - Parking lot as the place of occurrence of the external cause - Fall (on)(from) sidewalk curb, initial encounter - Contusion of left front wall of thorax, initial encounter - Pleurodynia - Personal history of nicotine dependence - Essential (primary) hypertension 12/28/2021 07:53 [facility] [place] TYPE: Emergency COMPLAINT: - L SIDE CHEST/RIB/ABD PAIN, NAUSEA 12/23/2021 12:25 [facility] [place] TYPE: Emergency COMPLAINT: - COUGH DIAGNOSES: - Cough, unspecified - Contact with and (suspected) exposure to COVID-19 - Personal history of nicotine dependence - Essential (primary) hypertension - Unspecified asthma, uncomplicated - Type 2 diabetes mellitus without complications - Acute upper respiratory infection, unspecified 12/20/2021 15:06 [facility] [place] TYPE: Emergency COMPLAINT: - CHEST PAIN DIAGNOSES: - Type 2 diabetes mellitus without complications - Other chest pain - Personal history of nicotine dependence - Essential (primary) hypertension 12/14/2021 16:34 [facility] [place] TYPE: Emergency COMPLAINT: - COUGH DIAGNOSES: - Type 2 diabetes mellitus without complications - Personal history of nicotine dependence - Acute upper respiratory infection, unspecified - Contact with and (suspected) exposure to COVID-19 - Cough, unspecified 11/25/2021 06:57 [facility] [place] TYPE: Emergency [...] hypertension - Personal history of nicotine dependence INPATIENT VISIT TRACKING (12 MO.) 12/28/2021 15:01 [facility] [place] TYPE: Medical Surgical COMPLAINT: - SEPSIS DIAGNOSES: - Constipation, unspecified - Severe sepsis without [...] COVID-19 - Severe sepsis without septic shock [email or web address]
[2022-08-14] MEDS ORDERED: CEPHALEXIN500 M1 PO (00:47)
== END 2022-08-10 15:53 | disposition home or self-care (01) ==
LOC: ED 15:12
DX: M25.522 Pain in left elbow (principal); I10 Essential (primary) hypertension; E11.9 Type 2 diabetes mellitus without complications; Z87.891 Personal history of nicotine dependence
CPT/HCPCS: 99283

== ENCOUNTER 2022-08-11 00:59 | Emergency (ER) | payer OTHER ==
[~2022-08-11] VITALS: Ht 160 cm; Wt 61.6 kg
--- OUTSIDE RECORDS SUMMARY | 2022-08-11 01:01 | XMS ---
PreManage Notification: KENY WELCH Security Staffing Coordinator Events 1 event(s) in the past 18 months Most recent security events: Elopement at [facility] 07/29/2022 13:44 - Patient eloped before treatment completed. - Patient with suicidal and/or homicidal ideations eloped. - Patient eloped with IV in place. Details: Patient LWBS. CRITERIA MET - Group Notification - [facility] - 2 Visits in 30 Days CARE PROVIDERS DL ARNETT Physician Rn Mental Health 09/01/2018-Current PHONE: [phone] [facility]/Center: Federally Qualified 02/24/2019-Current [facility] ([facility]) [facility] PHONE: [phone] Surya has no Care Guidelines for this patient. Care History Social 02/18/2018 [facility] PATIENT GIVEN CONTACT INFORMATION TO OPTOMETRIST ASSISTANT TO APPLY FOR STATE COVERAGE. Medical/Surgical 09/08/2018 [facility] - CHW IS UNABLE TO CONTACT PATIENT- CONTACT NUMBER INVALID - IF PATIENT IS SEEN IN THE ED AND IS WILLING TO ACCEPT HELP FOR TREATMENT PLEASE CONTACT [facility] A\T\amp; [facility] [phone] AND REQUEST TO SPEAK WITH VAMSI. - PLEASE CONTACT [facility]- [place]- [phone] WHEN PATIENT IS SEEN IN THE ED. 09/01/2018 [facility] - INVALID CONTACT INFO- CONTACT NUMBER IS NO LONGER IN SERVICE - IF PATIENT IS SEEN IN THE ED DURING BUSINESS HOURS PLEASE CONTACT CHRISTIANA EXT [phone] TO APPLY FOR MEDICAID BENEFITS. PATIENT NEEDS A PCP AND NEEDS TO APPLY FOR INSURANCE. - PATIENT HAS NOT BEEN SEEN BY PCP ARTHUR ARNETT. - PATIENT DOES NOT HAVE A PCP IN THE AREA. - PLEASE REFER PATIENT TO [facility] IN CLINIC IF PATIENT IS SEEN FOR NON EMERGENT MEDICAL NEEDS. E.D. VISIT COUNT (12 MO.) 14 [facility] TOTAL 14 NOTE: Visits indicate total known visits. ED/UCC VISIT TRACKING (12 MO.) 08/11/2022 00:59 [facility] [place] TYPE: Emergency COMPLAINT: - PAIN 08/10/2022 15:12 [facility] [place] TYPE: Emergency [...] Personal history of nicotine dependence 07/29/2022 13:44 [facility] [place] TYPE: Emergency [...] TYPE: Emergency COMPLAINT: - FALL DIAGNOSES: - Parking lot as the place of [...] TYPE: Emergency COMPLAINT: - COUGH DIAGNOSES: - Contact with and (suspected) exposure to COVID-19 - Personal history of nicotine dependence - Essential (primary) hypertension - Unspecified asthma, uncomplicated - Type 2 diabetes mellitus without complications - Acute upper respiratory infection, unspecified - Cough, unspecified 12/20/2021 15:06 [facility] [place]: Emergency COMPLAINT: - CHEST PAIN DIAGNOSES: - Type 2 diabetes mellitus without complications - Other chest pain - Personal history of nicotine dependence - Essential (primary) hypertension 12/14/2021 16:34 [facility] [place] TYPE: Emergency COMPLAINT: - COUGH DIAGNOSES: - Type 2 diabetes mellitus without complications - Personal history of nicotine dependence - Acute upper respiratory infection, unspecified - Contact with and (suspected) exposure to COVID-19 - Cough, unspecified 11/25/2021 06:57 [facility] [place] TYPE: Emergency COMPLAINT: - BACK PAIN DIAGNOSES: - Type 2 diabetes mellitus without complications - Essential (primary) hypertension - Personal history of nicotine dependence - Low back pain, unspecified [facility]13[facility]21 09[facility] [place] [facility] COMPLAINT: - RT THIGH SWELLING DIAGNOSES: - Essential (primary) hypertension - Type 2 diabetes mellitus without complications - Pain in right thigh - Personal history of nicotine dependence 09/27/2021 16:13 [facility] [place] TYPE: Emergency COMPLAINT: - FLANK PAIN DIAGNOSES: - Type 2 diabetes mellitus without complications - Unspecified abdominal pain - Essential (primary) hypertension - Personal history of nicotine dependence INPATIENT VISIT TRACKING (12 MO.) 12/28/2021 15:01 [facility] [place] TYPE: Medical Surgical COMPLAINT: - SEPSIS DIAGNOSES: - Leiomyoma of uterus, unspecified - Gram-negative sepsis, unspecified - Pneumonia due to other Gram-negative bacteria - Pneumonia due to Streptococcus pneumoniae - Fatty (change of) liver, not elsewhere classified - Type 2 diabetes mellitus without complications - Acute kidney failure, unspecified - Gram-negative sepsis, unspecified - Type 2 diabetes mellitus without complications - Personal history of nicotine dependence - Acute kidney failure, unspecified - Hypovolemia - Essential (primary) hypertension - Hypo-osmolality and hyponatremia - Essential (primary) hypertension - Sepsis, unspecified organism - Fatty (change of) liver, not elsewhere classified - Constipation, unspecified - Hypovolemia - Pneumonia due to other Gram-negative bacteria - Contact with and (suspected) exposure to COVID-19 - Other disorders of bilirubin metabolism - Severe sepsis without septic shock - Contact with and (suspected) exposure to COVID-19 - Severe sepsis without septic shock - Constipation, unspecified - Pneumonia due to Streptococcus pneumoniae - Personal history of nicotine dependence - Leiomyoma of uterus, unspecified - Other disorders of bilirubin metabolism - Hypo-osmolality and hyponatremia [email or web address]
[2022-08-14] MEDS ORDERED: CEPHALEXIN500 M1 PO (00:47)
== END 2022-08-11 08:11 | disposition home or self-care (01) ==
LOC: ED 00:59
DX: R51.9 Headache, unspecified (principal); R23.8 Other skin changes; I10 Essential (primary) hypertension; E11.9 Type 2 diabetes mellitus without complications; Z87.891 Personal history of nicotine dependence; Z59.00 Homelessness unspecified
CPT/HCPCS: 99283

== ENCOUNTER 2022-08-12 13:23 | Emergency (ER) | payer OTHER ==
[~2022-08-12] VITALS: Ht 160 cm; Wt 61.2 kg
--- OUTSIDE RECORDS SUMMARY | 2022-08-12 13:26 | XMS ---
PreManage Notification: KENY WELCH Security Paint Mixer Hand Events 1 event(s) in the past 18 months Most recent security events: Elopement at [facility] 07/29/2022 13:44 - Patient eloped before treatment completed. - Patient with suicidal and/or homicidal ideations eloped. - Patient eloped with IV in place. Details: Patient LWBS. CRITERIA MET - 6 ED Visits in 6 Months - [facility] - 2 Visits in 30 Days - Group Notification CARE PROVIDERS DL ARNETT Physician Associate Professor Of English 09/01/2018-Current PHONE: [phone] [facility]/Center: Federally Qualified 02/24/2019-[facility] ([facility]) [facility] PHONE: [phone] Surya has no Care Guidelines for this patient. Care History Social 02/18/2018 [facility] PATIENT GIVEN CONTACT INFORMATION TO MAINFRAME CONSULTANT TO APPLY FOR STATE COVERAGE. Medical/Surgical 09/08/2018 [facility] - CHW IS UNABLE TO CONTACT PATIENT- CONTACT NUMBER INVALID - IF PATIENT IS SEEN IN THE ED AND IS WILLING TO ACCEPT HELP FOR TREATMENT PLEASE CONTACT [facility] A\T\amp; [facility] [phone] AND REQUEST TO SPEAK WITH VAMSI. - PLEASE CONTACT [facility]- [facility]- [phone] WHEN PATIENT IS SEEN IN THE ED. 09/01/2018 [facility] - INVALID CONTACT INFO- CONTACT NUMBER IS NO LONGER IN SERVICE - IF PATIENT IS SEEN IN THE ED DURING BUSINESS HOURS PLEASE CONTACT CHRISTIANA EXT [phone] TO APPLY FOR MEDICAID BENEFITS. PATIENT NEEDS A PCP AND NEEDS TO APPLY FOR INSURANCE. - PATIENT HAS NOT BEEN SEEN BY PCP ARTHUR ARNETT. - PATIENT DOES NOT HAVE A PCP IN THE AREA. - PLEASE REFER PATIENT TO [facility] IF PATIENT IS SEEN FOR NON EMERGENT MEDICAL NEEDS. E.D. VISIT COUNT (12 MO.) 15 [facility] TOTAL 15 NOTE: Visits indicate total known visits. ED/UCC VISIT TRACKING (12 MO.) 08/12/2022 13:24 [facility] [place] Emergency COMPLAINT: - FALL, HEAD WOUND 08/11/2022 00:59 [facility] [place] TYPE: Emergency COMPLAINT: - PAIN 08/10/2022 15:12 [facility] [place] TYPE: Emergency COMPLAINT: - EXTERMITY PAIN/INJURY 08/05/2022 21:02 [facility] [place] TYPE: Emergency COMPLAINT: - RIGHT HIP PAIN/INJ DIAGNOSES: - Essential (primary) hypertension - Fall on same level due to ice and snow, initial encounter - Personal history of nicotine dependence - Contusion of right hip, initial encounter - Pain in right hip - Type 2 diabetes mellitus without complications 07/29/2022 13:44 [facility] [place] TYPE: Emergency COMPLAINT: - FEELING UNBALANCED, DIABETIC, HIGH B/P 05/19/2022 09:21 [facility] [place] TYPE: Emergency COMPLAINT: - VOMITING DIAGNOSES: - Cough, unspecified - Type 2 diabetes mellitus without complications - Essential (primary) hypertension - Personal history of nicotine dependence 02/11/2022 10:08 [facility] [place] TYPE: Emergency COMPLAINT: - L SIDE RIB PAIN DIAGNOSES: - Type 2 diabetes mellitus without complications - Fall on same level from slipping, tripping and stumbling without subsequent striking against object, initial encounter - Other chest pain - Essential (primary) hypertension - Unspecified abdominal pain - Personal history of nicotine dependence 02/01/2022 17:23 [facility] [place] TYPE: Emergency COMPLAINT: - FALL DIAGNOSES: - Pleurodynia - Personal history of nicotine dependence - Essential (primary) hypertension - Type 2 diabetes mellitus without complications - Parking lot as the place of occurrence of the external cause - Fall (on)(from) sidewalk curb, initial encounter - Contusion of left front wall of thorax, initial encounter 12/28/2021 07:53 [facility] [place] TYPE: Emergency COMPLAINT: - L SIDE CHEST/RIB/ABD PAIN, NAUSEA 12/23/2021 12:25 [facility] [place] TYPE: Emergency COMPLAINT: - COUGH DIAGNOSES: - Unspecified asthma, uncomplicated - Type 2 diabetes mellitus without complications - Acute upper respiratory infection, unspecified - Cough, unspecified - Contact with and (suspected) exposure to COVID-19 - Personal history of nicotine dependence - Essential (primary) hypertension 12/20/2021 15:06 [facility] [place] TYPE: Emergency COMPLAINT: - CHEST PAIN DIAGNOSES: - Personal history of nicotine dependence - Essential (primary) hypertension - Type 2 diabetes mellitus without complications - Other chest pain 12/14/2021 16:[facility] [place] COMPLAINT: - COUGH DIAGNOSES: - Contact with and (suspected) exposure to COVID-19 - Cough, unspecified - Type 2 diabetes mellitus without complications - Personal history of nicotine dependence - Acute upper respiratory infection, unspecified [facility]25[facility]2021 06[facility] [place] [facility] COMPLAINT: - BACK PAIN DIAGNOSES: - Personal history of nicotine dependence - Low back pain, unspecified - Type 2 diabetes mellitus without complications - Essential (primary) hypertension 10/13/2021 09:38 [facility] [place] TYPE: Emergency COMPLAINT: - RT THIGH SWELLING DIAGNOSES: - Pain in right thigh - Personal history of nicotine dependence - Essential (primary) hypertension - Type 2 diabetes mellitus without complications 09/27/2021 16:13 [facility] [place] TYPE: Emergency COMPLAINT: - FLANK PAIN DIAGNOSES: - Essential (primary) hypertension - Personal history of nicotine dependence - Type 2 diabetes mellitus without complications - Unspecified abdominal pain INPATIENT VISIT TRACKING (12 MO.) 12/28/2021 15:01 [facility] [place] TYPE: Medical Surgical COMPLAINT: - SEPSIS DIAGNOSES: - Hypovolemia - Acute kidney failure, unspecified [...] - Type 2 diabetes mellitus without complications [email or web address]
[2022-08-14] MEDS ORDERED: CEPHALEXIN500 M1 PO (00:47)
== END 2022-08-12 18:20 | disposition home or self-care (01) ==
LOC: ED 13:23
PROC: 0HQ0XZZ Repair Scalp Skin, External Approach (ICD-10-PCS; principal; 2022-08-12)
DX: S01.111A Laceration without foreign body of right eyelid and periocular area, initial encounter (principal); S20.212A Contusion of left front wall of thorax, initial encounter; I10 Essential (primary) hypertension; E11.9 Type 2 diabetes mellitus without complications; G43.909 Migraine, unspecified, not intractable, without status migrainosus; Z87.891 Personal history of nicotine dependence; W22.8XXA Striking against or struck by other objects, initial encounter
CPT/HCPCS: 12015; 99282

== ENCOUNTER 2022-08-22 13:28 | Emergency (ER) | payer OTHER ==
[~2022-08-22] VITALS: Ht 160 cm; Wt 59.4 kg
--- OUTSIDE RECORDS SUMMARY | 2022-08-22 13:38 | XMS ---
PreManage Notification: KENY WELCH Security Tray Delivery Aide Events 1 event(s) in the past 18 months Most recent security events: Elopement at [facility] 07/29/2022 13:44 - Patient eloped before treatment completed. - Patient with suicidal and/or homicidal ideations eloped. - Patient eloped with IV in place. Details: Patient LWBS. CRITERIA MET - 6 ED Visits in 6 Months - Group Notification - [facility] - 2 Visits in 30 Days CARE PROVIDERS DL ARNETT Physician Commercial Lending Relationship Manager 09/01/2018-Current PHONE: [phone] [facility]: Federally Qualified 02/24/2019-[facility] ([facility]) [facility] PHONE: [phone] Surya has no Care Guidelines for this patient. Care History Social 02/18/2018 [facility] PATIENT GIVEN CONTACT INFORMATION TO FINAL INSPECTOR SHUTTLE TO APPLY FOR STATE COVERAGE. Medical/Surgical 09/08/2018 [facility] - [facility] IS UNABLE TO CONTACT PATIENT- CONTACT NUMBER INVALID - IF PATIENT IS SEEN IN THE ED AND IS WILLING TO ACCEPT HELP FOR TREATMENT PLEASE CONTACT [facility] [employer] [phone] AND REQUEST TO SPEAK WITH [facility]. - PLEASE CONTACT W- NAHEED- [phone] WHEN PATIENT IS SEEN IN THE ED. 09/01/2018 [facility] - INVALID CONTACT INFO- CONTACT NUMBER IS NO LONGER IN SERVICE - IF PATIENT IS SEEN IN THE ED DURING BUSINESS HOURS PLEASE CONTACT [place] EXT [phone] TO APPLY FOR MEDICAID BENEFITS. PATIENT NEEDS A PCP AND NEEDS TO APPLY FOR INSURANCE. - PATIENT HAS NOT BEEN SEEN BY PCP ARTHUR ARNETT. - PATIENT DOES NOT HAVE A PCP IN THE AREA. - PLEASE REFER PATIENT TO [facility] IF PATIENT IS SEEN FOR NON EMERGENT MEDICAL NEEDS. E.D. VISIT COUNT (12 MO.) 17 [facility] TOTAL 17 NOTE: Visits indicate total known visits. ED/UCC VISIT TRACKING (12 MO.) 08/22/2022 13:[address] [facility] [place] TYPE: Emergency COMPLAINT: - L FOOT/KNEE PAIN 08/13/2022 21:34 [facility] [place] TYPE: Emergency COMPLAINT: - BLOOD IN STOOL, ABD PAIN DIAGNOSES: - Urinary tract infection, site not specified - Migraine, unspecified, not intractable, without status migrainosus - Type 2 diabetes mellitus without complications - Essential (primary) hypertension - Unspecified abdominal pain - Personal history of nicotine dependence 08/12/2022 13:[address] [facility] [place] TYPE: Emergency COMPLAINT: - FALL, HEAD WOUND DIAGNOSES: - Type 2 diabetes mellitus without complications - Contusion of left front wall of thorax, initial encounter - Personal history of nicotine dependence - Essential (primary) hypertension - Striking against or struck by other objects, initial encounter - Laceration without foreign body of right eyelid and periocular area, initial encounter - Migraine, unspecified, not intractable, without status migrainosus - Unspecified injury of head, initial encounter 08/11/2022 00:59 [facility] [place] TYPE: Emergency COMPLAINT: - PAIN DIAGNOSES: - Local infection of the skin and subcutaneous tissue, unspecified - Homelessness unspecified - Essential (primary) hypertension - Other skin changes - Headache, unspecified - Type 2 diabetes mellitus without complications - Personal history of nicotine dependence 08/10/2022 15:12 [facility] [place] TYPE[place] Emergency COMPLAINT: - EXTERMITY PAIN/INJURY DIAGNOSES: - Essential (primary) hypertension - Personal history of nicotine dependence - Type 2 diabetes mellitus without complications - Pain in left elbow 08/05/2022 21:[address] [facility] [place] TYPE: Emergency COMPLAINT: - RIGHT HIP PAIN/INJ DIAGNOSES: - Fall on same level due to ice and snow, initial encounter - Personal history of nicotine dependence - Contusion of right hip, initial encounter - Pain in right hip - Type 2 diabetes mellitus without complications - Essential (primary) hypertension 07/29/2022 13:44 [facility] [place] TYPE[place] Emergency COMPLAINT: - FEELING UNBALANCED, DIABETIC, HIGH B/P 05/19/2022 09:21 [facility] [place] TYPE: Emergency COMPLAINT: - VOMITING DIAGNOSES: - Cough, unspecified - Type 2 diabetes mellitus without complications - Essential (primary) hypertension - Personal history of nicotine dependence 02/11/2022 10:08 [facility] [place] TYPE: Emergency COMPLAINT: - L SIDE RIB PAIN DIAGNOSES: - Fall on same level from slipping, tripping and stumbling without subsequent striking against object, initial encounter - Other chest pain - Essential (primary) hypertension - Unspecified abdominal pain - Personal history of nicotine dependence - Type 2 diabetes mellitus without complications 02/01/2022 17:23 [facility] [place]: Emergency COMPLAINT: - FALL DIAGNOSES: - Personal history of nicotine dependence - Essential (primary) hypertension - Type 2 diabetes mellitus without complications - Parking lot as the place of occurrence of the external cause - Fall (on)(from) sidewalk curb, initial encounter - Contusion of left front wall of thorax, initial encounter - Pleurodynia 12/28/2021 07:53 [facility] [place] TYPE: Emergency COMPLAINT: - L SIDE CHEST/RIB/ABD PAIN, NAUSEA 12/23/2021 12:25 [facility] [place] TYPE: Emergency COMPLAINT: - COUGH DIAGNOSES: - Type 2 diabetes mellitus without complications - Acute upper respiratory infection, unspecified - Cough, unspecified - Contact with and (suspected) exposure to COVID-19 - Personal history of nicotine dependence - Essential (primary) hypertension - Unspecified asthma, uncomplicated 12/20/2021 15:06 [facility] [place] TYPE: Emergency COMPLAINT: - CHEST PAIN DIAGNOSES: - Personal history of nicotine dependence - Essential (primary) hypertension - Type 2 diabetes mellitus without complications - Other chest pain 12/14/2021 16:34 [facility] [place] TYPE: Emergency COMPLAINT: - COUGH DIAGNOSES: - Contact with and (suspected) exposure to COVID-19 - Cough, unspecified - Type 2 diabetes mellitus without complications - Personal history of nicotine dependence - Acute upper respiratory infection, unspecified 11/25/2021 06:[address] [facility] [place] TYPE: Emergency COMPLAINT: - BACK PAIN DIAGNOSES: - Personal history of nicotine dependence - Low back pain, unspecified - Type 2 diabetes mellitus without complications - Essential (primary) hypertension 10/13/2021 09:[address] [facility] [place] TYPE: [...] - SEPSIS DIAGNOSES: - Pneumonia due to other Gram-negative bacteria [...] Fatty (change of) liver, not elsewhere classified [email or web address]
[2022-08-22] MEDS ORDERED: NAPROSYN500 MG PO (18:47)
== END 2022-08-22 19:00 | disposition home or self-care (01) ==
LOC: ED 13:28
DX: S93.402A Sprain of unspecified ligament of left ankle, initial encounter (principal); I10 Essential (primary) hypertension; E11.9 Type 2 diabetes mellitus without complications; G43.909 Migraine, unspecified, not intractable, without status migrainosus; Z87.891 Personal history of nicotine dependence; W19.XXXA Unspecified fall, initial encounter
CPT/HCPCS: 73610; 99283-25; A9270